=== PATIENT | female | born 1985 | race American Indian/Alaskan Native ===

== ENCOUNTER 2018-04-04 18:48 | Emergency (ER) | payer MEDICAID ==
[2018-04-04 19:51] VITALS: BP 128/67
[2018-04-04] MEDS ORDERED: NACL 0.9% 1000 ML 1,000 ML IV ONE (20:00)
[2018-04-04 20:32] LABS: Basophils # (Auto) 0.1 K/mm3 (0.0-0.1); Basophils % (Auto) 0.7 % (0.0-1.8); Eosinophils % (Auto) 0.3 % (0.0-4.3); Hematocrit 36.7 % (30.3-42.9); Hemoglobin 12.5 gm/dl (10.1-14.3); Lymphocytes # (Auto) 2.1 K/mm3 (1.2-5.4); Lymphocytes % (Auto) 22.2 % (13.4-35.0); Mean Corpuscular HGB Conc 34 % (30-34); Mean Corpuscular Hemoglobin 30 pg (28-32); Mean Corpuscular Volume 88 fl (79-97); Monocytes # (Auto) 0.6 K/mm3 (0.0-0.8); Monocytes % (Auto) 6.3 % (0.0-7.3); Platelet Count 414 K/mm3 (140-440); Red Blood Count 4.15 M/mm3 (3.65-5.03); Red Cell Distribution Width 14.4 % (13.2-15.2)
[2018-04-04 20:53] LABS: Alanine Aminotransferase 33 units/L (7-56); Albumin 4.3 g/dL (3.9-5); BUN/Creatinine Ratio 10; Blood Urea Nitrogen 5 mg/dL (7-17); Calcium 9.7 mg/dL (8.4-10.2); Hemolysis Index 1
[2018-04-04 20:58] LABS: Bilirubin,Urine NEG (Negative); Blood,Urine NEG (Negative); Color,Urine Yellow (Yellow); Mucus,Urine 3+ /HPF; Protein,Urine <15 mg/dL mg/dL (Negative)
--- NOTE | 2018-04-05 03:44 | Ultrasound Report ---
FINAL REPORT EXAM: US OB < = 14 WEEKS FETUS HISTORY: 8 weeks gestational/ Abdomen Pain COMPARISON: None available. TECHNIQUE: Several real-time grayscale and color Doppler images were obtained. Transabdominal and transvaginal exam. FINDINGS: The uterus measures 10.8 x 5.9 x 8.4 centimeters. There is a single live IUP. Estimated gestational age 9 weeks 5 days. Estimated delivery date November 03, 2018. heart rate 168 beats per minute. Yolk sac is present. Cervix is closed. Right ovary measures 3.1 x 2.7 x 2.5 centimeters. Left ovary measures 2.5 x 1.5 x 2.4 centimeters. Within the right ovary, there is a 1.8 x 1.3 x 1.5 centimeter cystic structure which may reflect corpus luteum. There is gross vascular flow to the ovaries. No adnexal masses or free fluid. IMPRESSION: Single live IUP. Estimated gestational age 9 weeks 5 days. Estimated delivery date November 03, 2018. 1.8 centimeter right ovarian cystic structure which may reflect corpus luteum. No adnexal masses are demonstrated.
== END 2018-04-05 07:31 | disposition left against medical advice (07) ==
LOC: ED 18:48
DX: R10.9 Unspecified abdominal pain (principal); Z53.21 Procedure and treatment not carried out due to patient leaving prior to being seen by health care provider
CPT/HCPCS: 36415; 76801; 76817; 80053; 81001; 84702; 85025

== ENCOUNTER 2018-10-16 18:59 | Inpatient (IN) | payer MEDICAID ==
--- NOTE | 2018-10-16 19:11 | History and Physical Report ---
History of Present Illness Date of examination: 10/16/18 Date of admission: 10/16/18 18:59 Chief complaint: Induction of labor History of present illness: Pt is a 33yo BF EDC 11/08/18; EGA 36 5/7 weeks presents from [facility] for induction of labor due to elevated BP's 161/81 and 159/70, small for gestational age and history of PTD. She received care at [facility] since 9 weeks and co-managed with [facility]. records are available and GBS is Negative. Past History Past Medical History: other (Morbid obesity) Past Surgical History: no surgical history Family/Genetic History: hypertension Social history: no significant social history, single - Obstetrical History Expected Date of Delivery: 11/08/18 Actual Gestation: 36 Week(s) 6 Day(s) : 4 Medications and Allergies Allergies Allergy/AdvReac Type Severity Reaction Status Date / Time amoxicillin [Amoxicillin] Allergy Rash Verified 07/12/15 12:50 Latex, Natural Rubber Allergy Itching Verified 07/12/15 12:50 povidone-iodine Allergy Itching Verified 07/12/15 12:50 [From Betadine] soap [From Betadine] Allergy Itching Verified 07/12/15 12:50 Home Medications Medication Instructions Recorded Confirmed Last Taken Type Ibuprofen [Motrin 600 MG tab] 600 mg PO Q8H PRN #30 tablet 07/12/15 Unknown Rx Promethazine Dm (Nf) [Phenergan Dm 5 ml PO Q6H PRN 7 Days 07/12/15 Unknown Rx 6.25/15 mg 5 ml] traMADol [Ultram 50 MG tab] 50 mg PO Q4HR PRN #20 tablet 07/12/15 Unknown Rx Review of Systems All systems: negative - Physical Exam Breasts: Positive: deferred Cardiovascular: Regular rate Lungs: Positive: Clear to auscultation Abdomen: Positive: normal appearance Genitourinary (Female): Positive: normal external genitalia Uterus: Positive: enlarged Extremities: Positive: normal - Obstetrical FHR: category 1 Uterine Contraction Monitor Mode: External Results Result Diagrams: 10/16/18 19:40 All other labs normal. Ultrasound: report reviewed Assessment and Plan - Patient Problems (1) 36 weeks gestation of Onset Date: 10/16/18 Current Visit: Yes Status: Acute Plan to address problem: A: IUP @ 36 5/7 weeks Suspected Preeclampsia Morbid Obesity P: Admit to L&D for cervidil/pitiocin induction of labor (2) Preeclampsia Onset Date: 10/16/18 Current Visit: Yes Status: Acute Qualifiers: Trimester: third trimester Qualified Code(s): O14.93 - Unspecified pre- eclampsia, third trimester
[2018-10-16] MEDS ORDERED: STADOL IV PRN (19:26)
[2018-10-16] MEDS ORDERED: SUBLIMAZE IV PRN (19:26)
[2018-10-16] MEDS ORDERED: PHENERGAN PO PRN (19:26)
[2018-10-16] MEDS ORDERED: BRETHINE SUB-Q PRN (19:26)
[2018-10-16] MEDS ORDERED: XYLOCAINE 2% INFILTRATI ONE (19:26)
[2018-10-16] MEDS ORDERED: BRETHINE IVP PRN (19:26)
[2018-10-16] MEDS ORDERED: MINERAL OIL PO PRN (19:26)
[2018-10-16] MEDS ORDERED: ZOFRAN IV PRN (19:26)
[2018-10-16 20:00] LABS: Hematocrit 30.8 % (30.3-42.9); Mean Corpuscular HGB Conc 33 % (30-34); Mean Corpuscular Volume 85 fl (79-97); Platelet Count 340 K/mm3 (140-440); Red Blood Count 3.64 M/mm3 (3.65-5.03); Red Cell Distribution Width 14.7 % (13.2-15.2)
[2018-10-16] MEDS ORDERED: PITOCin/NS 20 UNIT/1000ML DRIP 20 UNITS/1,000 ML BAG IV SCH (20:00)
[2018-10-16] MEDS ORDERED: CERVIDIL VG ONE (20:00)
[2018-10-16] MEDS ORDERED: PITOCin/NS 30 UNIT/500ML 30 UNITS/500 ML BAG IV SCH ×2 (20:00)
[2018-10-16] MEDS: LACTATED RINGERS 1,000 ML IV SCH (21:38)
[2018-10-16] MEDS: TYLENOL PO PRN (23:34)
--- NOTE | 2018-10-17 12:26 | Progress Note ---
Assessment and Plan - Patient Problems (1) 36 weeks gestation of Onset Date: 10/16/18 Current Visit: Yes Status: Acute Plan to address problem: A: IUP @ 36 6/7 weeks Suspected Preeclampsia Morbid Obesity P: Continue with pitiocin induction of labor (2) Preeclampsia Onset Date: 10/16/18 Current Visit: Yes Status: Acute Qualifiers: Trimester: third trimester Qualified Code(s): O14.93 - Unspecified pre- eclampsia, third trimester Subjective - Subjective Date of service: 10/17/18 Principal diagnosis: IUP @ 36 6/7 weeks; Preeclampsia Interval history: Pt is a 33yo BF EDC 11/08/18; EGA 36 6/7 weeks presented from [facility] for induction of labor due to elevated BP's 161/81 and 159/70, small for gestational age and history of PTD. She received cervidil last night and will start pitocin now. Patient reports: movement normal, contractions, no new complaints, no loss of fluid, no vaginal bleeding Objective - Vital Signs Vital Signs: Vital Signs - 12hr 10/17/18 10/17/18 10/17/18 00:30 00:35 00:40 Temperature Pulse Rate 67 61 58 L Blood Pressure O2 Sat by Pulse 100 98 99 Oximetry 10/17/18 10/17/18 10/17/18 00:45 00:50 00:55 Temperature Pulse Rate 61 61 61 Blood Pressure O2 Sat by Pulse 98 98 99 Oximetry 10/17/18 10/17/18 10/17/18 01:00 01:05 01:08 Temperature Pulse Rate 64 64 72 Blood Pressure O2 Sat by Pulse 99 99 88 Oximetry 10/17/18 10/17/18 10/17/18 01:10 01:24 01:29 Temperature Pulse Rate 63 58 L 64 Blood Pressure O2 Sat by Pulse 98 99 99 Oximetry 10/17/18 10/17/18 10/17/18 01:37 01:42 01:47 Temperature Pulse Rate 69 63 61 Blood Pressure O2 Sat by Pulse 98 98 98 Oximetry 10/17/18 10/17/18 10/17/18 01:52 01:57 02:02 Temperature Pulse Rate 62 59 L 60 Blood Pressure O2 Sat by Pulse 97 98 98 Oximetry 10/17/18 10/17/18 10/17/18 02:07 02:12 02:17 Temperature Pulse Rate 65 61 64 Blood Pressure O2 Sat by Pulse 97 97 97 Oximetry 10/17/18 10/17/18 10/17/18 02:22 02:24 02:27 Temperature Pulse Rate 67 61 62 Blood Pressure 141/69 O2 Sat by Pulse 97 98 Oximetry 10/17/18 10/17/18 10/17/18 02:30 02:32 02:37 Temperature Pulse Rate 63 60 64 Blood Pressure 127/63 O2 Sat by Pulse 99 98 Oximetry 10/17/18 10/17/18 10/17/18 02:42 02:47 02:52 Temperature Pulse Rate 66 67 66 Blood Pressure O2 Sat by Pulse 97 97 98 Oximetry 10/17/18 10/17/18 10/17/18 02:57 03:02 03:07 Temperature Pulse Rate 64 64 63 Blood Pressure O2 Sat by Pulse 98 98 99 Oximetry 10/17/18 10/17/18 10/17/18 03:12 03:17 03:22 Temperature Pulse Rate 58 L 55 L 58 L Blood Pressure O2 Sat by Pulse 99 98 98 Oximetry 10/17/18 10/17/18 10/17/18 03:27 03:30 03:32 Temperature Pulse Rate 62 56 L 63 Blood Pressure 131/64 O2 Sat by Pulse 98 98 Oximetry 10/17/18 10/17/18 10/17/18 03:37 03:42 03:47 Temperature Pulse Rate 61 63 59 L Blood Pressure O2 Sat by Pulse 97 98 98 Oximetry 10/17/18 10/17/18 10/17/18 03:52 03:57 04:02 Temperature Pulse Rate 65 59 L 56 L Blood Pressure O2 Sat by Pulse 98 98 99 Oximetry 10/17/18 10/17/18 10/17/18 04:05 04:07 04:12 Temperature Pulse Rate 53 L 63 69 Blood Pressure O2 Sat by Pulse 93 97 98 Oximetry 10/17/18 10/17/18 10/17/18 04:15 04:17 04:22 Temperature Pulse Rate 66 61 77 Blood Pressure O2 Sat by Pulse 94 98 98 Oximetry 10/17/18 10/17/18 10/17/18 04:59 05:03 05:04 Temperature Pulse Rate 53 L 56 L 57 L Blood Pressure 130/84 O2 Sat by Pulse 100 97 Oximetry 10/17/18 10/17/18 10/17/18 05:09 05:14 05:19 Temperature Pulse Rate 54 L 55 L 51 L Blood Pressure O2 Sat by Pulse 97 97 97 Oximetry 10/17/18 10/17/18 10/17/18 05:24 05:29 05:31 Temperature Pulse Rate 50 L 57 L 54 L Blood Pressure 116/66 O2 Sat by Pulse 99 98 Oximetry 10/17/18 10/17/18 10/17/18 05:34 05:39 05:44 Temperature Pulse Rate 55 L 55 L 59 L Blood Pressure O2 Sat by Pulse 98 98 98 Oximetry 10/17/18 10/17/18 10/17/18 05:49 05:54 05:59 Temperature Pulse Rate 56 L 59 L 55 L Blood Pressure O2 Sat by Pulse 97 97 98 Oximetry 10/17/18 10/17/18 10/17/18 06:04 06:09 06:14 Temperature Pulse Rate 58 L 65 61 Blood Pressure O2 Sat by Pulse 97 97 99 Oximetry 10/17/18 10/17/18 10/17/18 06:19 06:24 06:29 Temperature Pulse Rate 57 L 57 L 59 L Blood Pressure O2 Sat by Pulse 99 99 100 Oximetry 10/17/18 10/17/18 10/17/18 06:30 06:46 06:51 Temperature Pulse Rate 54 L 61 66 Blood Pressure 109/75 O2 Sat by Pulse 100 100 Oximetry 10/17/18 10/17/18 10/17/18 06:56 07:01 07:06 Temperature Pulse Rate 52 L 52 L 54 L Blood Pressure O2 Sat by Pulse 100 100 100 Oximetry 10/17/18 10/17/18 10/17/18 07:11 07:16 07:21 Temperature Pulse Rate 55 L 57 L 62 Blood Pressure O2 Sat by Pulse 100 99 99 Oximetry 10/17/18 10/17/18 10/17/18 07:30 07:35 07:36 Temperature 98.0 F Pulse Rate 62 58 L Blood Pressure 137/85 O2 Sat by Pulse 100 100 Oximetry 10/17/18 10/17/18 10/17/18 07:40 07:45 07:50 Temperature Pulse Rate 54 L 57 L 57 L Blood Pressure O2 Sat by Pulse 99 100 99 Oximetry 10/17/18 10/17/18 10/17/18 07:55 08:00 08:05 Temperature Pulse Rate 59 L 60 56 L Blood Pressure O2 Sat by Pulse 98 98 98 Oximetry 10/17/18 10/17/18 10/17/18 08:10 08:15 08:20 Temperature Pulse Rate 57 L 55 L 58 L Blood Pressure O2 Sat by Pulse 97 98 98 Oximetry 10/17/18 10/17/18 10/17/18 08:25 08:30 08:35 Temperature Pulse Rate 73 58 L 59 L Blood Pressure 132/63 O2 Sat by Pulse 99 94 98 Oximetry 10/17/18 10/17/18 10/17/18 08:40 08:45 08:50 Temperature Pulse Rate 59 L 57 L 57 L Blood Pressure O2 Sat by Pulse 98 98 99 Oximetry 10/17/18 10/17/18 10/17/18 08:55 09:00 09:05 Temperature Pulse Rate 52 L 63 55 L Blood Pressure O2 Sat by Pulse 99 99 99 Oximetry 10/17/18 10/17/18 10/17/18 09:10 09:15 09:20 Temperature Pulse Rate 54 L 48 L 58 L Blood Pressure O2 Sat by Pulse 100 100 100 Oximetry 10/17/18 10/17/18 09:25 11:31 Temperature Pulse Rate 61 58 L Blood Pressure 130/74 O2 Sat by Pulse 99 Oximetry - Exam Abdomen: Present: normal appearance, soft Uterus: Present: normal FHR: category 1 Uterine Contraction Monitor Mode: External Cervical Dilatation: 3 (per nurse) Cervical Effacement Percentage: 50 (per nurse) station: -3 Uterine Contraction Pattern: Regular Uterine Tone Measurement Phase: Contraction Uterine Contraction Intensity: Mild - Labs Labs: Abnormal Labs 10/16/18 19:40 RBC 3.64 L Hgb 10.0 L Laboratory Results - last 24 hr 10/16/18 10/16/18 10/16/18 19:40 19:40 19:40 WBC 7.4 RBC 3.64 L Hgb 10.0 L Hct 30.8 MCV 85 MCH 28 MCHC 33 RDW 14.7 Plt Count 340 RPR Nonreactive Blood Type B POSITIVE Antibody Screen Negative
[2018-10-17] MEDS ORDERED: MARCAINE 0.25% INFILTRATI ONE (17:34)
[2018-10-17] MEDS ORDERED: NARCAN 2 MG/2 ML IV PRN (17:43)
--- NOTE | 2018-10-17 17:43 | Anesthesia Day of Surgery ---
Anesthesia Day of Surgery - Day of Surgery Patient Examined: Yes Patient H&P Reviewed: Yes Patient is NPO: Yes Beta Blockers: No Cardiac Clearance: No Pulmonary Clearance: No Janes's Test: N/A
[2018-10-17] MEDS ORDERED: fentaNYL-BUPIV 2 MCG/ML-0.125% 200 MCG/100 ML BAG EPIDURAL ONE (17:58)
[2018-10-17] MEDS ORDERED: fentaNYL-BUPIV 2 MCG/ML-0.125% 200 MCG/100 ML BAG EPIDURAL SCH (18:00)
--- NOTE | 2018-10-17 18:44 | Anesthesia Consultation ---
Anesthesia Consult and Med Hx Date of service: 10/17/18 - Airway Anesthetic Teeth Evaluation: Good ROM Head & Neck: Adequate Mental/Hyoid Distance: Adequate Mallampati Class: Class III Intubation Access Assessment: Probably Good - Pulmonary Exam CTA: Yes - Cardiac Exam Cardiac Exam: RRR - Pre-Operative Health Status ASA Pre-Surgery Classification: ASA3 Proposed Anesthetic Plan: Epidural - Pulmonary Hx Smoking: No Hx Asthma: No Hx Respiratory Symptoms: No SOB: No COPD: No Hx Pneumonia: No Hx Sleep Apnea: No - Cardiovascular System Hx Hypertension: Yes Hx Coronary Artery Disease: No Hx Heart Attack/AMI: No Hx Angina: No Hx Percutaneous Transluminal Coronary Angioplasty (PTCA): No Hx Cardia Arrhythmia: No Hx Pacemaker: No Hx Internal Defibrillator: No Hx Valvular Heart Disease: No Hx Heart Murmur: No Hx Peripheral Vascular Disease: No - Central Nervous System Hx Neuromuscular Disorder: No Hx Seizures: No CVA: No Hx Back Pain: Yes () Hx Psychiatric Problems: No - Gastrointestinal Hx Ulcer: No Hx Gastroesophageal Reflux Disease: Yes (associated with foods) - Endocrine Hx Renal Disease: No Hx End Stage Renal Disease: No Hx Cirrhosis: No Hx Liver Disease: No Hx Insulin Dependent Diabetes: No Hx Non-Insulin Dependent Diabetes: No Hx Thyroid Disease: No Hx Hypothyroidism: No Hx Hyperthyroidism: No - Hematic Hx Anemia: No Hx Sickle Cell Disease: No - Other Systems Hx Alcohol Use: No Hx Substance Use: No Hx Cancer: No Hx Obesity: Yes (denies YVROSE)
[2018-10-17] MEDS: TYLENOL PO PRN (20:14)
[2018-10-17] MEDS: LACTATED RINGERS 1,000 ML IV SCH (20:16)
--- NOTE | 2018-10-17 22:17 | Procedure Note ---
OB Delivery Note - Delivery Date of Delivery: 10/17/18 Surgeon: JADEN WYMAN Estimated blood loss: 100cc - Vaginal Delivery presentation: vertex Delivery position: OA Intrapartum events: labor-<37 weeks, preeclampsia Delivery induction: cervidil Delivery augmentation: rupture of membranes, pitocin Delivery monitor: external FHT, external uterine, internal uterine Route of delivery: Delivery placenta: spontaneous Delivery cord: 3 umbilical vessels Episiotomy: none Delivery laceration: none Anesthesia: epidural Delivery comments: Infant delivered OA and placed on Mom's chest for [id number] bonding and delayed cord clamping, cut by grandma - A at 1 minute: 8 at 5 minutes: 9 Gender: Male (2390gms)
[2018-10-17] MEDS ORDERED: TUCKS PAD TP PRN (22:19)
[2018-10-17] MEDS ORDERED: LANSINOH TP PRN (22:19)
[2018-10-17] MEDS ORDERED: BENADRYL PO PRN (22:19)
[2018-10-17] MEDS ORDERED: TYLENOL PO PRN (22:19)
[2018-10-17] MEDS ORDERED: PHENERGAN PO PRN (22:19)
[2018-10-17] MEDS ORDERED: MILK OF MAGNESIA PO PRN (22:19)
[2018-10-17] MEDS ORDERED: DULCOLAX PR PRN (22:19)
[2018-10-17] MEDS ORDERED: ZOFRAN IV PRN (22:19)
[2018-10-17] MEDS ORDERED: PHENERGAN PR PRN (22:19)
[2018-10-17] MEDS: NORCO 5/325 PO PRN (22:44)
[2018-10-17] MEDS ORDERED: NORMODYNE PO SCH (23:00)
[2018-10-17] MEDS ORDERED: SODIUM CHLORIDE FLUSH SYRINGE 10 ML IV PRN (23:00)
[2018-10-17] MEDS ORDERED: PITOCin/NS 20 UNIT/1000ML DRIP 20 UNITS/1,000 ML BAG IV SCH (23:00)
[2018-10-18] MEDS: IBUPROFEN PO SCH ×4 (00:08→22:44)
[2018-10-18] MEDS: SENOKOT S PO SCH ×3 (00:09→22:44)
--- NOTE | 2018-10-18 01:08 | Post Anesthesia Evaluation ---
- Post Anesthesia Evaluation Patient Participated: Yes Airway Patent: Yes Stable Respiratory Function: Yes Nausea/Vomiting: No Temp > 96.8F: No Pain Manageable: Yes Adequeate Hydration: Yes Anesthesia Complications: No Block Receding Appropriately: Yes Patient on Ventilator: No
[2018-10-18] MEDS: NORCO 5/325 PO PRN ×2 (05:06→22:45)
--- NOTE | 2018-10-18 09:47 | Progress Note ---
Assessment and Plan - Patient Problems (1) 36 weeks gestation of Onset Date: 10/16/18 Current Visit: Yes Status: Resolved (2) Preeclampsia Onset Date: 10/16/18 Current Visit: Yes Status: Resolved Qualifiers: Trimester: third trimester Qualified Code(s): O14.93 - Unspecified pre-eclampsia, third trimester (3) (normal spontaneous vaginal delivery) Onset Date: 10/18/18 Current Visit: Yes Status: Resolved Plan to address problem: A: S/P - PPD #1 Doing well Preeclampsia - improved on Labetolol Asymptomatic anemia - stable P: Anticipate discharge tomorrow. Subjective - Subjective Date of service: 10/18/18 Principal diagnosis: s/p - PPD #1 Interval history: Pt is feeling well without complaints. Bleeding improved. Patient reports: appetite normal, voiding normally, pain well controlled, flatus, ambulating normally, no dizzy ambulation, no nauseated Burns: doing well, nursing well, bottle feeding Objective - Vital Signs Latest vital signs: Vital Signs Temp Pulse Resp BP BP Pulse Ox 10/18/18 07:28 97.7 F 60 20 133/67 98 10/18/18 04:35 98.1 F 55 L 20 136/62 98 10/17/18 23:46 98.2 F 57 L 18 147/76 100 10/17/18 22:44 55 L 115/65 10/17/18 22:43 152/83 10/17/18 22:33 61 99 10/17/18 22:28 65 98 10/17/18 22:23 68 98 10/17/18 22:21 65 152/83 10/17/18 22:19 85 94 10/17/18 22:18 61 100 10/17/18 22:13 62 100 10/17/18 22:11 66 62 L 10/17/18 22:08 64 100 10/17/18 22:03 65 93 10/17/18 22:02 67 99 10/17/18 21:57 58 L 100 10/17/18 21:52 55 L 100 10/17/18 21:50 57 L 157/77 10/17/18 21:47 58 L 100 10/17/18 21:42 55 L 100 10/17/18 21:40 63 161/75 10/17/18 21:37 62 182/83 100 10/17/18 21:32 55 L 100 10/17/18 21:27 56 L 100 10/17/18 21:22 53 L 100 10/17/18 21:20 54 L 158/93 10/17/18 21:17 53 L 100 10/17/18 21:12 54 L 100 10/17/18 21:07 56 L 155/89 98 10/17/18 21:02 71 100 10/17/18 20:57 61 100 10/17/18 20:52 55 L 100 10/17/18 20:51 55 L 148/79 10/17/18 20:47 58 L 100 10/17/18 20:42 61 100 10/17/18 20:37 57 L 100 10/17/18 20:36 55 L 136/83 10/17/18 20:32 59 L 100 10/17/18 20:27 56 L 100 10/17/18 20:22 61 100 10/17/18 20:21 58 L 136/72 10/17/18 20:17 73 99 10/17/18 20:12 59 L 100 10/17/18 20:07 62 140/76 99 10/17/18 20:04 61 149/78 10/17/18 20:02 69 100 10/17/18 19:57 60 100 10/17/18 19:52 59 L 100 10/17/18 19:50 60 129/83 10/17/18 19:47 66 100 10/17/18 19:42 60 100 10/17/18 19:37 59 L 100 10/17/18 19:35 63 132/82 10/17/18 19:32 61 100 10/17/18 19:27 62 100 10/17/18 19:22 59 L 136/83 100 10/17/18 19:17 62 100 10/17/18 19:12 74 99 10/17/18 19:09 98.7 F 62 18 130/82 10/17/18 19:07 63 100 10/17/18 19:06 57 L 130/80 10/17/18 19:02 57 L 99 10/17/18 18:57 53 L 100 10/17/18 18:52 57 L 100 10/17/18 18:51 98.4 F 10/17/18 18:50 56 L 138/86 10/17/18 18:48 54 L 140/83 10/17/18 18:47 57 L 100 10/17/18 18:46 53 L 138/80 10/17/18 18:44 60 131/87 10/17/18 18:42 56 L 130/83 100 10/17/18 18:40 57 L 132/86 10/17/18 18:38 60 132/85 10/17/18 18:37 59 L 100 10/17/18 18:36 58 L 122/75 10/17/18 18:34 60 125/76 10/17/18 18:32 60 142/73 100 10/17/18 18:30 62 124/77 10/17/18 18:28 62 126/76 10/17/18 18:27 64 100 10/17/18 18:24 64 149/85 10/17/18 18:23 78 147/81 93 10/17/18 18:22 67 97 10/17/18 18:20 65 148/79 10/17/18 18:18 65 148/74 10/17/18 18:17 63 100 10/17/18 18:16 76 143/71 10/17/18 18:14 67 158/88 10/17/18 18:12 68 156/90 10/17/18 18:11 59 L 169/107 10/17/18 18:10 58 L 178/97 10/17/18 18:09 57 L 100 10/17/18 18:04 57 L 100 10/17/18 17:33 86 138/70 10/17/18 17:18 56 L 144/78 10/17/18 17:04 55 L 161/89 10/17/18 16:49 55 L 130/84 10/17/18 16:33 52 L 137/65 10/17/18 16:18 55 L 144/77 10/17/18 16:05 54 L 161/72 10/17/18 15:50 52 L 158/74 10/17/18 15:20 65 166/94 10/17/18 15:04 57 L 133/72 10/17/18 14:48 63 127/74 10/17/18 14:33 63 131/78 10/17/18 14:18 70 126/72 10/17/18 14:04 62 131/77 10/17/18 13:49 58 L 145/72 10/17/18 13:33 57 L 142/66 10/17/18 13:18 54 L 160/75 10/17/18 12:31 61 144/78 10/17/18 11:31 58 L 130/74 Intake and Output 10/17/18 10/18/18 10/18/18 22:59 06:59 14:59 Intake Total 126.067 360 Output Total 300 Balance 126.067 60 Intake: IV 126.067 PITOCin/NS 30 UNIT/500ML 126.067 30 units In 500 ml @ 1 MILLIUNITS/MIN 1 mls/hr IV TITR NAOMY Rx#:[id number] Intake, Free Water 360 Output: Urine 300 Void 300 Other: Total, Output Amount 100 Estimated Blood Loss 100 - Exam Breasts: Present: deferred Abdomen: Present: normal appearance, soft Uterus: Present: normal, firm, fundal height below umbilicus Extremities: Present: normal - Labs Labs: Laboratory Tests 10/16/18 10/16/18 10/16/18 19:40 19:40 19:40 WBC 7.4 RBC 3.64 L Hgb 10.0 L Hct 30.8 MCV 85 MCH 28 MCHC 33 RDW 14.7 Plt Count 340 RPR Nonreactive Blood Type B POSITIVE Antibody Screen Negative 10/18/18 10:59 WBC RBC Hgb 9.3 L Hct 28.0 L MCV MCH MCHC RDW Plt Count RPR Blood Type Antibody Screen
[2018-10-18] MEDS: NORMODYNE PO SCH ×2 (10:09→22:46)
[2018-10-18] MEDS: PRENATAL VITAMIN PO SCH (10:09)
[2018-10-18] MEDS: FEOSOL PO SCH ×2 (10:10→22:43)
[2018-10-18 11:40] LABS: Hemoglobin 9.3 gm/dl (10.1-14.3)
[2018-10-18] MEDS ORDERED: M-M-R II VACCINE SUB-Q ONE (22:19)
[2018-10-19] MEDS: IBUPROFEN PO SCH ×4 (04:26→18:41)
[2018-10-19] MEDS: NORCO 5/325 PO PRN ×2 (04:29→11:49)
[2018-10-19] MEDS ORDERED: BOOSTRIX IM ONE (06:00)
[2018-10-19] MEDS: FEOSOL PO SCH ×2 (09:27→22:09)
[2018-10-19] MEDS: PRENATAL VITAMIN PO SCH (09:27)
--- NOTE | 2018-10-19 09:49 | Progress Note ---
Assessment and Plan - Patient Problems (1) 36 weeks gestation of Onset Date: 10/16/18 Current Visit: Yes Status: Resolved (2) Preeclampsia Onset Date: 10/16/18 Current Visit: Yes Status: Resolved Qualifiers: Trimester: third trimester Qualified Code(s): O14.93 - Unspecified pre-eclampsia, third trimester (3) (normal spontaneous vaginal delivery) Onset Date: 10/18/18 Current Visit: Yes Status: Resolved Plan to address problem: A: S/P - PPD #2 Doing well Preeclampsia - improved on Labetolol Asymptomatic anemia - stable P: Will increase Labetolol to 200mg BID. Subjective - Subjective Date of service: 10/19/18 Principal diagnosis: s/p - PPD #2 Interval history: Pt is feeling well without complaints. Pt complains of a mild headache. Patient reports: appetite normal, voiding normally, pain well controlled, flatus, no dizzy ambulation, no nauseated Coleman: doing well, nursing well Objective - Vital Signs Latest vital signs: Vital Signs Temp Pulse Resp BP BP Pulse Ox 10/19/18 09:27 94 H 159/91 10/19/18 08:15 97.5 F L 49 L 20 159/91 10/19/18 06:40 49 L 20 139/70 10/19/18 04:29 16 10/19/18 04:26 16 10/19/18 02:14 97.8 F 60 20 145/85 98 10/18/18 22:46 68 134/72 10/18/18 22:45 16 10/18/18 22:44 16 10/18/18 22:39 97.6 F 69 16 134/72 99 10/18/18 12:06 98.2 F 64 20 127/70 97 10/18/18 10:09 127/63 Intake and Output 10/18/18 10/19/18 10/19/18 22:59 06:59 14:59 Intake Total 360 360 120 Balance 360 360 120 Intake: Oral 360 360 120 Other: Total, Intake Amount 240 120 120 # Voids Void 1 1 1 - Exam Cardiovascular: Present: Regular rate Lungs: Present: Clear to auscultation Abdomen: Present: normal appearance, soft Uterus: Present: normal, firm, fundal height below umbilicus Extremities: Present: normal - Labs Labs: Abnormal lab results 10/18/18 Range/Units 10:59 Hgb 9.3 L (10.1-14.3) gm/dl Hct 28.0 L (30.3-42.9) %
[2018-10-19] MEDS ORDERED: NORMODYNE PO SCH (10:00)
[2018-10-19] MEDS ORDERED: NORMODYNE PO NR (10:05)
[2018-10-19] MEDS: SENOKOT S PO SCH ×3 (12:00→22:09)
[2018-10-19] MEDS: NORMODYNE PO SCH (22:10)
[2018-10-20] MEDS: IBUPROFEN PO SCH (02:28)
--- NOTE | 2018-10-20 10:28 | Discharge Summary ---
Providers - Providers Date of Admission: 10/16/18 18:59 Date of discharge: 10/20/18 Attending physician: JADEN WYMAN Primary care physician: JADEN WYMAN Hospitalization Reason for admission: induction of labor, IUP at term, other (Preeclampsia) Delivery: Episiotomy: none Laceration: none complications: none Discharge diagnosis: IUP at term delivered [place] baby: male Hospital course: Pt is a 33yo BF EDC 11/08/18; EGA 36 6/7 weeks presented from [facility] for induction of labor due to elevated BP's 161/81 and 159/70, small for gestational age and history of PTD. She received cervidil followed by pitocin and subsequently delivered a viable male . By PPD #2 her BP's were controlled on Labetolol 200mg BID and she was therefore discharged to home on PPD #3 in stable condition. She will follow up in the office in 1 week for BP check. Condition at discharge: Good Disposition: DC-01 TO HOME OR SELFCARE - Discharge Diagnoses (1) 36 weeks gestation of Status: Resolved (2) Preeclampsia Status: Resolved Qualifiers: Trimester: third trimester Qualified Code(s): O14.93 - Unspecified pre- eclampsia, third trimester (3) (normal spontaneous vaginal delivery) Status: Resolved Plan - Discharge Medications Prescriptions: Ferrous Sulfate [Feosol 325 MG tab] 325 mg PO BID #60 tablet Ibuprofen [Motrin 600 MG tab] 600 mg PO Q6HR #30 tablet Labetalol [Normodyne TAB] 200 mg PO BID #30 tablet Vit-Fe Fumar-FA [ Vitamin] 1 each PO QDAY #30 tablet - Provider Discharge Summary Activity: routine, no sex for 6 weeks, no heavy lifting 4 weeks, no strenuous exercise Diet: routine Instructions: routine Additional instructions: [] Smoking cessation referral if applicable(refer to patient education folder for contact #) [] Refer to [facility] Booklet Call your doctor immediately for: * Fever > 100.5 * Heavy vaginal bleeding ( >1 pad per hour) * Severe persistent headache * Shortness of breath * Reddened, hot, painful area to leg or breast * Drainage or odor from incision. * Keep incision clean and dry at all times and follow doctor's instructions regarding bathing/showering - Follow up plan Follow up: JADEN WYMAN MD [Primary Care Provider] - 7 Days SWATHI WILKERSON CNM [Advanced Practice Nurse] - 7 Days
--- NOTE | 2018-10-20 10:28 | Progress Note ---
Assessment and Plan - Patient Problems (1) 36 weeks gestation of Onset Date: 10/16/18 Current Visit: Yes Status: Resolved (2) Preeclampsia Onset Date: 10/16/18 Current Visit: Yes Status: Resolved Qualifiers: Trimester: third trimester Qualified Code(s): O14.93 - Unspecified pre-eclampsia, third trimester (3) (normal spontaneous vaginal delivery) Onset Date: 10/18/18 Current Visit: Yes Status: Resolved Plan to address problem: A: S/P - PPD #3 Doing well Preeclampsia - improved on Labetolol Asymptomatic anemia - stable P: May go home today. Subjective - Subjective Date of service: 10/20/18 Principal diagnosis: s/p - PPD #3 Interval history: Pt is feeling well without complaints. Ready to go home. Patient reports: appetite normal, voiding normally, pain well controlled, flatus, ambulating normally, no dizzy ambulation, no nauseated [place]: doing well, nursing well, bottle feeding Objective - Vital Signs Latest vital signs: Vital Signs Temp Pulse Resp BP BP Pulse Ox 10/20/18 07:41 98.2 F 54 L 16 180/67 100 10/20/18 04:44 98.4 F 62 20 162/60 98 10/20/18 00:24 98.3 F 52 L 24 133/58 10/19/18 22:10 57 L 180/78 10/19/18 21:22 98.6 F 52 L 16 180/78 100 10/19/18 16:15 97.2 F L 51 L 20 147/56 10/19/18 11:55 97.4 F L 63 20 156/73 Intake and Output 10/19/18 10/20/18 10/20/18 22:59 06:59 14:59 Intake Total 240 360 Balance 240 360 Intake: Oral 240 Intake, Free Water 360 Other: Total, Intake Amount 240 Voiding Method Toilet # Voids Void 1 2 - Exam Breasts: Present: deferred Abdomen: Present: normal appearance, soft Uterus: Present: normal, firm, fundal height below umbilicus Extremities: Present: normal
[2018-10-20] MEDS: FEOSOL PO SCH (10:47)
[2018-10-20] MEDS: SENOKOT S PO SCH (10:47)
[2018-10-20] MEDS: PRENATAL VITAMIN PO SCH (10:47)
[2018-10-20] MEDS: NORMODYNE PO SCH (10:48)
[2018-10-20 12:32] VITALS: BP 167/76
[2018-10-20] MEDS ORDERED: M-M-R II VACCINE SUB-Q ONE (15:00)
== END 2018-10-20 14:30 | disposition home or self-care (01) | DRG 774 ==
LOC: LD 18:59 → OB 10-17 23:40
PROVIDERS: ADMIT Obstetrics & Gynecology; ATTEND Obstetrics & Gynecology
PROC: 10E0XZZ Delivery of Products of Conception, External Approach (ICD-10-PCS; principal; 2018-10-17)
PROC: 3E0R3BZ Introduction of Anesthetic Agent into Spinal Canal, Percutaneous Approach (ICD-10-PCS; 2018-10-17)
PROC: 00HU33Z Insertion of Infusion Device into Spinal Canal, Percutaneous Approach (ICD-10-PCS; 2018-10-17)
PROC: 3E0P7VZ Introduction of Hormone into Female Reproductive, Via Natural or Artificial Opening (ICD-10-PCS; 2018-10-17)
PROC: 3E0234Z Introduction of Serum, Toxoid and Vaccine into Muscle, Percutaneous Approach (ICD-10-PCS; 2018-10-20)
DX: O60.14X0 Preterm labor third trimester with preterm delivery third trimester, not applicable or unspecified (principal); O14.94 Unspecified pre-eclampsia, complicating childbirth; O99.214 Obesity complicating childbirth; E66.01 Morbid (severe) obesity due to excess calories; O99.02 Anemia complicating childbirth; D64.9 Anemia, unspecified; Z82.49 Family history of ischemic heart disease and other diseases of the circulatory system; Z88.8 Allergy status to other drugs, medicaments and biological substances; Z88.1 Allergy status to other antibiotic agents; Z3A.36 36 weeks gestation of pregnancy; Z37.0 Single live birth; Z23 Encounter for immunization; Z91.040 Latex allergy status
CPT/HCPCS: 36415; 85014; 85018; 85027; 86592; 86850; 86900; 86901; 88307; G0378; J2405; J2590; J7120

== ENCOUNTER 2020-12-07 13:56 | Outpatient (CLI) | payer MEDICAID ==
[2020-12-07] MEDS ORDERED: LACTATED RINGERS 1,000 ML IV SCH (14:15)
[2020-12-07] MEDS ORDERED: METOCLOPRAMIDE 10 MG/2 ML INJ IV ONE (15:04)
[2020-12-07] MEDS ORDERED: ONDANSETRON 4 MG/2 ML INJ IV ONE (15:06)
[2020-12-07] MEDS ORDERED: BICITRA ORAL LIQD 30ML PO ONE (15:07)
[2020-12-07 15:54] VITALS: BP 153/81
[2020-12-07 15:55] LABS: Bacteria,Urine 1+ /HPF (Negative); Bilirubin,Urine SM (Negative); Blood,Urine NEG (Negative); Color,Urine Amber (Yellow); Mucus,Urine 3+ /HPF
[2020-12-07 16:12] LABS: Ictotest,Urine Negative (Negative)
== END 2020-12-07 16:24 | disposition home or self-care (01) ==
LOC: TRG 13:56 → APU 13:58 → TRG 16:24
PROVIDERS: ATTEND Obstetrics & Gynecology
DX: O21.2 Late vomiting of pregnancy (principal); O10.913 Unspecified pre-existing hypertension complicating pregnancy, third trimester; Z3A.31 31 weeks gestation of pregnancy; Z87.891 Personal history of nicotine dependence
CPT/HCPCS: 59025; 81001; 96361; 96374; 96375; J2405; J2765; J7120; 96360

== ENCOUNTER 2020-12-23 13:31 | Inpatient (IN) | payer MEDICAID ==
[2020-12-23] MEDS: LACTATED RINGERS 1,000 ML IV SCH (15:43)
[2020-12-23 16:14] LABS: Bacteria,Urine 1+ /HPF (Negative); Bilirubin,Urine NEG (Negative); Blood,Urine NEG (Negative); Color,Urine Yellow (Yellow); Mucus,Urine FEW /HPF
[2020-12-23 16:34] LABS: Hematocrit 30.6 % (30.3-42.9); Hemoglobin 10.1 gm/dl (10.1-14.3); Mean Corpuscular HGB Conc 33 % (30-34); Mean Corpuscular Volume 83 fl (79-97); Platelet Count 293 K/mm3 (140-440); Red Blood Count 3.67 M/mm3 (3.65-5.03); Red Cell Distribution Width 16.2 % (13.2-15.2)
[2020-12-23 17:06] LABS: Alanine Aminotransferase 101 units/L (7-56)
[2020-12-23] MEDS ORDERED: hydrALAZINE 20 MG/1 ML INJ IV NR (17:14)
[2020-12-23] MEDS ORDERED: hydrALAZINE 20 MG/1 ML INJ ONE (17:14)
[2020-12-23 17:47] LABS: Creatinine,Urine 42.5 mg/dL (0.1-20.0); Protein/Creatinine Ratio,Urine 0.31
[2020-12-23] MEDS ORDERED: ONDANSETRON 4 MG/2 ML INJ IV PRN (18:14)
[2020-12-23] MEDS ORDERED: DOCUSATE SODIUM 100 MG CAP PO PRN (18:14)
[2020-12-23] MEDS ORDERED: MAGNESIUM SULFATE 4 GM/100 ML BAG IV ONE (18:19)
[2020-12-23] MEDS ORDERED: BETAMET ACET/BETAMET NA PH 6 MG/ML INJ 5 ML MDV IM SCH ×2 (18:20→19:00)
--- NOTE | 2020-12-23 18:27 | History and Physical Report ---
History of Present Illness Date of examination: 12/23/20 History of present illness: 35 yo at 34 weeks and 1 day presents today with bothersome on and off CRUZ. No blurred vision. No CP/SOB. BPs in the hospital have been labile but several have been in the severe range. Pt has had preeclamspia in all of her p regnancies. PT not on any BP meds as her BPs, per pt, have been stable in the until now. No available. PT denies having had steroids during her . Past History Past Medical History: other (preeclampsia in her other pregnancies) Past Surgical History: no surgical history Social history: no significant social history - Obstetrical History : 6 Para: 4 Hx # Term Pregnancies: 4 Spontaneous Abortions: 1 Number of Living Children: 4 Medications and Allergies Allergies Allergy/AdvReac Type Severity Reaction Status Date / Time amoxicillin [Amoxicillin] Allergy Rash Verified 07/12/15 12:50 Latex, Natural Rubber Allergy Itching Verified 07/12/15 12:50 povidone-iodine Allergy Itching Verified 07/12/15 12:50 [From Betadine] soap [From Betadine] Allergy Itching Verified 07/12/15 12:50 Home Medications Medication Instructions Recorded Confirmed Last Taken Type Ibuprofen [Motrin 600 MG tab] 600 mg PO Q8H PRN #30 tablet 07/12/15 10/18/18 Unknown Rx Promethazine Dm (Nf) [Phenergan Dm 5 ml PO Q6H PRN 7 Days 07/12/15 10/18/18 Unknown Rx 6.25/15 mg 5 ml] traMADoL [Ultram 50 MG tab] 50 mg PO Q4HR PRN #20 tablet 07/12/15 10/18/18 Unknown Rx Ferrous Sulfate [Feosol 325 MG tab] 325 mg PO BID #60 tablet 10/20/18 Unknown Rx Ibuprofen [Motrin 600 MG tab] 600 mg PO Q6HR #30 tablet 10/20/18 Unknown Rx Vit-Fe Fumar-FA [ 1 each PO QDAY #30 tablet 10/20/18 Unknown Rx Vitamin] labetaloL [Labetalol 100mg TAB] 200 mg PO BID #30 tablet 10/20/18 Unknown Rx Active Meds: Active Medications Acetaminophen (Acetaminophen 325 Mg Tab) 650 mg PO Q4H PRN PRN Reason: Pain MILD(1-3)/Fever >100.5/CRUZ Betamethasone Acet/Betameth SodPhos (Betamet Acet/Betamet Na Ph 6 Mg/Ml Inj 5 Ml Mdv) 12 mg IM Q24HR NAOMY Stop: 12/24/20 19:01 Betamethasone Acet/Betameth SodPhos (Betamet Acet/Betamet Na Ph 6 Mg/Ml Inj 5 Ml Mdv) 12 mg IM Q24HR NAOMY Docusate Sodium (Docusate Sodium 100 Mg Cap) 100 mg PO Q12H PRN PRN Reason: Constipation Hydralazine HCl (Hydralazine 20 Mg/1 Ml Inj) 10 mg IV ONCE NR Stop: 12/23/20 18:30 Last Admin: 12/23/20 18:13 Dose: 10 mg Documented by: Lactated Ringer's (Lactated Ringers) 1,000 mls @ 125 mls/hr IV DIRECT NAOMY Last Admin: 12/23/20 15:43 Dose: 125 mls/hr Documented by: Clindamycin HCl (Cleocin 900 Mg/50 Ml) 900 mg in 50 mls @ 100 mls/hr IV Q8H NAOMY; Protocol Stop: 12/25/20 11:29 Magnesium Sulfate (Magnesium Sulfate 40gm/1000ml) 40 gm in 1,000 mls @ 50 mls/hr IV DIRECT NAOMY Magnesium Sulfate (Magnesium Sulfate 4gm/100ml) 4 gm in 100 mls @ 300 mls/hr IV ONCE ONE Stop: 12/23/20 18:38 Labetalol HCl (Labetalol 200 Mg Tab) 200 mg PO BID [facility] Multivitamins/Iron/Calcium ( [id number]-Tf Fumarate-Folic Acid Vit Tab) 1 each PO QDAY [facility] Ondansetron HCl (Ondansetron 4 Mg/2 Ml Inj) 4 mg IV Q6H PRN PRN Reason: Nausea And Vomiting Review of Systems All systems: negative (except HPI) - Vital Signs Vital signs: Vital Signs Pulse BP 67 189/109 12/23/20 15:00 12/23/20 15:00 Temp Pulse Resp BP Pulse Ox 98.3 F 76 20 172/81 12/23/20 15:04 12/23/20 18:20 12/23/20 15:04 12/23/20 18:20 - Physical Exam Abdomen: Positive: normal appearance, soft. Negative: tenderness - Obstetrical FHR: category 1 Cervical Dilatation: 2 Cervical Effacement Percentage: 50 station: -2, -3 Uterine Contraction Pattern: Irregular Results Result Diagrams: 12/23/20 Unknown 12/23/20 Unknown Abnormal lab results 12/23/20 12/23/20 12/23/20 Range/Units 17:25 Unknown Unknown RDW 16.2 H (13.2-15.2) % AST (5-40) units/L ALT (7-56) units/L Lactate Dehydrogenase (91-180) units/L Urine WBC (Auto) 9.0 H (0.0-6.0) /HPF Urine Creatinine 42.5 H (0.1-20.0) mg/dL Urine Total Protein 13 H (5-11.8) mg/dL 12/23/20 Range/Units Unknown RDW (13.2-15.2) % AST 57 H (5-40) units/L ALT 101 H (7-56) units/L Lactate Dehydrogenase 292 H (91-180) units/L Urine WBC (Auto) (0.0-6.0) /HPF Urine Creatinine (0.1-20.0) mg/dL Urine Total Protein (5-11.8) mg/dL All other labs normal. Assessment and Plan - Patient Problems (1) Preeclampsia Onset Date: 10/16/18 Current Visit: No Status: Resolved Qualifiers: Trimester: third trimester Qualified Code(s): O14.93 - Unspecified pre- eclampsia, third trimester Plan to address problem: PT with preeclampsia with severe features. In addition to her CRUZ and BPs that have been in the severe range, her AST/SLT are 57/101. Her ruine prot/cr ratio is 0.31. As a result, pt counseled about risks, benefits and alternative, fidelia since she is premature. She does agree to proceed with IOL. Will start Pitocin. Start MgSO4. Will start Betamethasone, start Clindamycin. An IV hydralazine was just recently given and BPs improved. Will also add Labetalol 200 mg BID. PT agrees with the plan. All questions answered.
[2020-12-23] MEDS ORDERED: OXYTOCIN DRIP 30,000 MILLIUNITS/500 ML BAG IV ONE (20:15)
[2020-12-23] MEDS: MAGNESIUM SULFATE 40GM/1000ML 40 GM/1,000 ML BAG IV SCH (20:42)
[2020-12-23] MEDS ORDERED: hydrALAZINE 20 MG/1 ML INJ IV ONE (21:06)
[2020-12-23] MEDS ORDERED: BUTORPHANOL 2 MG/1 ML INJ IV ONE (21:51)
[2020-12-23] MEDS ORDERED: OXYTOCIN DRIP 30 UNITS/500 ML BAG IV SCH (23:45)
[2020-12-23] MEDS ORDERED: fentaNYL-BUPIV 2 MCG/ML-0.125% 200 MCG/100 ML BAG EPIDURAL SCH (23:45)
[2020-12-23] MEDS ORDERED: NALOXONE 2 MG/2 ML INJ IV PRN (23:49)
[2020-12-23] MEDS ORDERED: ePHEDrine SULFATE 50 MG/1 ML INJ IV PRN (23:49)
--- NOTE | 2020-12-23 23:51 | Anesthesia Consultation ---
Anesthesia Consult and Med Hx Date of service: 12/23/20 - Airway Anesthetic Teeth Evaluation: Poor ROM Head & Neck: Adequate Mental/Hyoid Distance: Adequate Mallampati Class: Class II Intubation Access Assessment: Probably Good - Pulmonary Exam CTA: Yes - Cardiac Exam Cardiac Exam: RRR - Pre-Operative Health Status ASA Pre-Surgery Classification: ASA3 Proposed Anesthetic Plan: Epidural - Pulmonary Hx Smoking: No Hx Asthma: No Hx Respiratory Symptoms: No SOB: No COPD: No Home Oxygen Therapy: No Hx Pneumonia: No Hx Sleep Apnea: No - Cardiovascular System Hx Hypertension: Yes Hx Coronary Artery Disease: No Hx Heart Attack/AMI: No Hx Angina: No Hx Percutaneous Transluminal Coronary Angioplasty (PTCA): No Hx Cardia Arrhythmia: No Hx Pacemaker: No Hx Internal Defibrillator: No Hx Valvular Heart Disease: No Hx Heart Murmur: No Hx Peripheral Vascular Disease: No - Central Nervous System Hx Neuromuscular Disorder: No Hx Seizures: No CVA: No Hx Back Pain: Yes () Hx Psychiatric Problems: No - Gastrointestinal Hx Ulcer: No Hx Gastroesophageal Reflux Disease: Yes (associated with foods) - Endocrine Hx Renal Disease: No Hx End Stage Renal Disease: No Hx Cirrhosis: No Hx Liver Disease: No Hx Insulin Dependent Diabetes: No Hx Non-Insulin Dependent Diabetes: No Hx Thyroid Disease: No Hx Hypothyroidism: No Hx Hyperthyroidism: No - Hematic Hx Anemia: Yes Hx Sickle Cell Disease: No - Other Systems Hx Alcohol Use: No Hx Substance Use: No Hx Cancer: No Hx Obesity: Yes (denies YVROSE)
--- NOTE | 2020-12-23 23:52 | Progress Note ---
Labor Epidural - Labor Epidural Start Time: 23:10 Stop Time: 23:20 Performed by:: SIMONE WELLINGTON Procedure: Patient is requesting a laboring epidural for laboring pain. Patient IDed, H&P reviewed, all questions and concerns were answered, and consent was signed. Timeout was performed at bedside. Patient in sitting position. Sterile prep(ChloraPrep) and drape was performed. [3] ml of 1% lidocaine skin wheal at L[3]- L [4]. 18-gauge Tuohy epidural needle was advanced to loss of resistance with saline technique 8cm. Negative CSF negative blood. Epidural catheter advanced to [12] centimeters. [NEGATIVE] Aspiration [NEGATIVE] test dose. Sterile dressing applied. Patient tolerated procedure.
[2020-12-24] MEDS ORDERED: OXYTOCIN 10 UNIT/1 ML INJ ONE ×2 (02:18→02:19)
[2020-12-24] MEDS ORDERED: BENZOCAINE/MENTHOL 20/0.5% TOP SPRAY 56 GM TP PRN (02:29)
[2020-12-24] MEDS ORDERED: LANOLIN/ZINC/DIMETHICONE (LANSINOH) 7 GM TP PRN ×2 (02:29)
[2020-12-24] MEDS ORDERED: WITCH HAZEL/ GLYCERIN PAD TP PRN (02:29)
[2020-12-24] MEDS ORDERED: MAGNESIUM HYDROXIDE (MOM) ORAL LIQD UDC PO PRN (02:29)
[2020-12-24] MEDS ORDERED: ONDANSETRON 4 MG/2 ML INJ IV PRN (02:29)
[2020-12-24] MEDS ORDERED: PROMETHAZINE 25 MG TAB PO PRN (02:29)
[2020-12-24] MEDS ORDERED: CARBOPROST TROMETHAMINE 250 MCG/1 ML INJ IM PRN (02:29)
[2020-12-24] MEDS ORDERED: PROMETHAZINE 25 MG RECT SUPP PR PRN (02:29)
[2020-12-24] MEDS ORDERED: diphenhydrAMINE 25 MG CAP PO PRN (02:29)
--- NOTE | 2020-12-24 02:36 | Procedure Note ---
OB Delivery Note - Delivery Date of Delivery: 12/24/20 Surgeon: CLAUDIA SPENCE Estimated blood loss: 200cc - Vaginal Delivery presentation: vertex Delivery position: OA Intrapartum events: none Delivery induction: oxytocin Delivery augmentation: rupture of membranes Delivery monitor: external FHT Route of delivery: Delivery placenta: spontaneous Delivery cord: 3 umbilical vessels Episiotomy: none Delivery laceration: none Anesthesia: epidural Delivery comments: Anterior shoulder delivered without difficulty. Baby bulb suctioned at the perineum and again after delivery. Delayed cord clamping and cut. Baby to the warmer. Placenta delivered spontaneously and was delivered in its entirety. Good hemostasis throughout. Mother and baby stable. - A at 1 minute: 8 at 5 minutes: 9 Infant Gender: Male
[2020-12-24] MEDS: ACETAMINOPHEN 325 MG TAB PO PRN (02:38)
[2020-12-24] MEDS ORDERED: OXYTOCIN DRIP 30 UNITS/500 ML BAG IV SCH (03:00)
[2020-12-24] MEDS: IBUPROFEN 600 MG TAB PO SCH ×4 (04:23→21:02)
[2020-12-24] MEDS: PRENATAL VIT27-FE FUMARATE-FOLIC ACID VIT TAB PO SCH (10:32)
[2020-12-24] MEDS: oxyCODONE /ACETAMINOPHEN 5-325MG TAB PO PRN ×2 (11:57→17:26)
--- NOTE | 2020-12-24 16:07 | Post Anesthesia Evaluation ---
- Post Anesthesia Evaluation Patient Participated: Yes Airway Patent: Yes Stable Respiratory Function: Yes Nausea/Vomiting: No Temp > 96.8F: Yes Pain Manageable: Yes Adequeate Hydration: Yes Anesthesia Complications: No Block Receding Appropriately: Yes Patient on Ventilator: No
[2020-12-24] MEDS: MAGNESIUM SULFATE 40GM/1000ML 40 GM/1,000 ML BAG IV SCH (16:42)
[2020-12-24] MEDS: LACTATED RINGERS 1,000 ML IV SCH (16:42)
[2020-12-24] MEDS ORDERED: oxyCODONE /ACETAMINOPHEN 5-325MG TAB PO ONE (18:20)
[2020-12-24] MEDS ORDERED: oxyCODONE /ACETAMINOPHEN 5-325MG TAB PO PRN (20:00)
--- NOTE | 2020-12-24 21:01 | Event Note ---
Date: 12/24/20 Called by RN for hemorrhage with spontaneous resolution of bleeding, EBL 300 cc. Fundus firm. Continue to monitor. Consider sono if further bleeding and/or pelvic pain.
[2020-12-24] MEDS ORDERED: METHYLERGONOVINE MALEATE 0.2 MG/ML VIAL IM ONE (21:22)
[2020-12-24] MEDS ORDERED: AMMONIA INHALANT IH ONE ×4 (21:24→22:00)
[2020-12-24] MEDS ORDERED: miSOPROStol 200 MCG TAB ONE (21:26)
[2020-12-24] MEDS ORDERED: LOPERAMIDE 2 MG CAP PO PRN (21:31)
[2020-12-24] MEDS ORDERED: CARBOPROST TROMETHAMINE 250 MCG/1 ML INJ IM ONE (21:40)
[2020-12-24 22:02] LABS: Basophils % (Auto) 0.1 % (0.0-1.8); Eosinophils % (Auto) 0.1 % (0.0-4.3); Lymphocytes % (Auto) 14.2 % (13.4-35.0); Mean Corpuscular HGB Conc 32 % (30-34); Mean Corpuscular Volume 83 fl (79-97); Monocytes # (Auto) 0.7 K/mm3 (0.0-0.8); Platelet Count 318 K/mm3 (140-440); Red Blood Count 3.36 M/mm3 (3.65-5.03); Red Cell Distribution Width 16.4 % (13.2-15.2)
[2020-12-24 22:11] LABS: INR 0.93 (0.87-1.13)
[2020-12-24 22:13] LABS: Alanine Aminotransferase 72 units/L (7-56); Albumin 2.8 g/dL (3.9-5); Blood Urea Nitrogen 9 mg/dL (7-17); Calcium 6.6 mg/dL (8.4-10.2); Hemolysis Index 44
[2020-12-24 22:19] LABS: BUN/Creatinine Ratio 13
[2020-12-24] MEDS ORDERED: SENNOSIDES 8.6 MG TAB PO PRN (22:21)
--- NOTE | 2020-12-24 22:32 | Ultrasound Report ---
US OB LIMITED INDICATION / CLINICAL INFORMATION: bleeding. Rule out retained products of conception. COMPARISON: None available. FINDINGS: The uterus measures 16.6 x 10.5 x 10.5 cm. The endometrial stripe measures 1 cm AP. The endometrial c avity is empty. No abnormal vascularity is seen the endometrium/endometrial cavity on Doppler exam. Neither ovary is seen. No abnormal mass or fluid collection is identified. IMPRESSION: No sonographic evidence of retained products of conception. Signer Name: Leon Clark MD Signed: 12/24/2020 10:28 PM Workstation Name: [id number]
[2020-12-24] MEDS: DOCUSATE SODIUM 100 MG CAP PO SCH (22:56)
[2020-12-24] MEDS ORDERED: miSOPROStol 200 MCG TAB PR ONE (23:00)
--- NOTE | 2020-12-24 23:26 | Event Note ---
Date: 12/24/20 Called by RN for heavy vaginal bleeding and vasovagal episode without trauma, witnessed by RN. Patient with 600 cc clot/bright red blood passage improved with hemabate x 1. CBC, CMP, PT/PTT/INR, EKG, Ambulatory Analyst sono ordered to evaluate for retained POC. Personally seen and evaluated patient after the event. VSS, fundus firm, no clots in vaginal vault. Sono wnl, no evidence of retained POC. Now 1000 total EBL including 200 cc hemorrhage from prior episode, and 200 cc at delivery. Hgb 10.1 -> 9.0 Patient also admits constipation. Usually regular BMs. Colace BID and Senna BID ordered. Advance is indicated. Continue to monitor. Repeat CBC in AM.
[2020-12-25] MEDS ORDERED: hydrALAZINE 20 MG/1 ML INJ IV ONE (01:27)
[2020-12-25] MEDS: LACTATED RINGERS 1,000 ML IV SCH (01:29)
[2020-12-25] MEDS: ACETAMINOPHEN 325 MG TAB PO PRN (05:30)
[2020-12-25 07:48] LABS: Hematocrit 23.4 % (30.3-42.9); Hemoglobin 7.6 gm/dl (10.1-14.3); Mean Corpuscular HGB Conc 32 % (30-34); Mean Corpuscular Volume 82 fl (79-97); Platelet Count 262 K/mm3 (140-440); Red Blood Count 2.84 M/mm3 (3.65-5.03); Red Cell Distribution Width 16.9 % (13.2-15.2)
[2020-12-25] MEDS ORDERED: SODIUM CHLORIDE 0.9% 500 ML 500 ML IV NR (08:05)
[2020-12-25 08:12] LABS: Alanine Aminotransferase 56 units/L (7-56); Albumin 2.3 g/dL (3.9-5); Blood Urea Nitrogen 7 mg/dL (7-17); Calcium 6.3 mg/dL (8.4-10.2); Hemolysis Index 0
[2020-12-25 08:41] LABS: BUN/Creatinine Ratio 14
--- NOTE | 2020-12-25 08:48 | Progress Note ---
Assessment and Plan POSR ANEMIA FROM DELAYED PPBLEED. WILL TRANSFUSE TODAY WITH 2 UNITS OF BLOOD. - Patient Problems (1) Anemia Current Visit: Yes Status: Acute Qualifiers: Anemia type: other cause Other causes of anemia: acute posthemorrhagic Qualified Code(s): D62 - Acute posthemorrhagic anemia (2) 36 weeks gestation of Onset Date: 10/16/18 Current Visit: No Status: Resolved Subjective - Subjective Date of service: 12/25/20 Principal diagnosis: , post hemmorhage, blood loss anemia Interval history: PT HAD SIGNIFICANT BLOOD LOSS AFTER DELIVERY. SHE FEELS WEAK. HER HGB IS 7.6/23% TODAY. WILL TRANSFUSE TODAY WITH 2 UNITS OF PRBC. Patient reports: appetite normal ([employer] APP[employer]) : doing well, in NICU, , nursing well, transported, other, bottle feeding Objective - Vital Signs Latest vital signs: Vital Signs Temp Pulse Resp BP BP Pulse Ox 12/25/20 05:10 97.6 F 69 17 127/75 100 12/25/20 04:20 97.5 F L 12/25/20 04:15 68 131/73 12/25/20 04:12 68 99 12/25/20 04:07 67 99 12/25/20 04:02 66 99 12/25/20 03:57 65 100 12/25/20 03:52 67 99 12/25/20 03:51 66 123/68 12/25/20 03:47 66 98 12/25/20 03:42 67 99 12/25/20 03:37 67 99 12/25/20 03:32 66 100 12/25/20 03:27 81 100 12/25/20 03:22 62 100 12/25/20 03:21 72 136/83 12/25/20 03:17 61 100 12/25/20 03:12 62 100 12/25/20 03:07 62 100 12/25/20 03:02 61 100 12/25/20 02:57 62 99 12/25/20 02:52 61 100 12/25/20 02:51 60 147/94 12/25/20 02:47 62 100 12/25/20 02:42 61 100 12/25/20 02:37 61 99 12/25/20 02:32 62 100 12/25/20 02:27 62 100 04/30/21 02:22 60 100 12/25/20 02:19 67 146/70 12/25/20 02:17 60 99 12/25/20 02:12 62 100 12/25/20 02:07 61 100 12/25/20 02:03 59 L 143/91 12/25/20 02:02 61 100 12/25/20 01:57 63 99 12/25/20 01:52 62 100 12/25/20 01:48 62 144/92 12/25/20 01:47 64 100 12/25/20 01:42 64 100 12/25/20 01:37 62 100 12/25/20 01:33 62 145/91 12/25/20 01:32 65 100 12/25/20 01:27 63 100 12/25/20 01:22 67 100 12/25/20 01:18 64 151/94 12/25/20 01:17 67 100 12/25/20 01:12 66 100 12/25/20 01:07 65 100 12/25/20 01:03 64 149/86 12/25/20 01:02 65 99 12/25/20 00:57 66 99 12/25/20 00:52 65 100 12/25/20 00:48 63 155/88 12/25/20 00:47 64 99 12/25/20 00:42 64 99 12/25/20 00:37 63 100 12/25/20 00:34 63 150/86 12/25/20 00:32 63 99 12/25/20 00:27 64 100 12/25/20 00:22 64 96 12/25/20 00:17 93.9 F L 63 100 12/25/20 00:12 60 166/106 100 12/25/20 00:11 60 167/105 12/25/20 00:07 62 100 12/25/20 00:02 65 100 12/24/20 23:57 63 100 12/24/20 23:52 62 100 12/24/20 23:47 63 100 12/24/20 23:42 62 100 12/24/20 23:37 64 100 12/24/20 23:32 64 100 12/24/20 23:27 64 100 12/24/20 23:22 63 100 12/24/20 23:21 61 148/93 12/24/20 23:17 62 100 12/24/20 23:12 60 100 12/24/20 23:07 61 100 12/24/20 23:02 62 100 12/24/20 22:57 59 L 100 12/24/20 22:56 63 176/95 12/24/20 22:55 61 176/95 12/24/20 22:52 61 100 12/24/20 22:50 61 163/88 12/24/20 22:47 60 99 12/24/20 22:42 61 98 12/24/20 22:40 58 L 167/90 12/24/20 22:37 60 161/89 99 12/24/20 22:32 61 98 12/24/20 22:30 60 161/89 12/24/20 22:27 63 98 12/24/20 22:22 65 97 12/24/20 22:20 64 165/88 12/24/20 22:17 65 97 12/24/20 22:12 66 98 12/24/20 22:10 64 156/94 12/24/20 22:07 68 98 12/24/20 21:57 68 171/77 12/24/20 21:55 67 176/84 12/24/20 21:53 70 148/81 12/24/20 21:51 70 162/85 12/24/20 21:49 71 137/83 12/24/20 21:48 71 150/107 12/24/20 21:41 68 161/91 12/24/20 21:40 71 143/85 12/24/20 21:38 69 151/91 12/24/20 21:37 68 154/78 12/24/20 21:35 70 160/76 12/24/20 21:34 74 151/92 90 12/24/20 21:29 70 159/98 100 12/24/20 21:06 66 100 12/24/20 21:05 73 90 12/24/20 21:02 67 101/53 12/24/20 21:01 70 100 12/24/20 20:56 84 100 12/24/20 20:51 78 100 12/24/20 20:47 73 143/85 12/24/20 20:46 76 100 12/24/20 20:41 75 100 12/24/20 20:36 76 99 04/29/21 20:31 76 100 12/24/20 20:26 74 100 12/24/20 20:21 75 100 12/24/20 20:20 18 12/24/20 20:16 75 143/91 100 12/24/20 20:11 73 100 12/24/20 20:06 71 100 12/24/20 20:03 71 143/92 12/24/20 20:01 74 100 12/24/20 19:56 72 100 12/24/20 19:55 97.4 F L 18 12/24/20 19:51 76 100 12/24/20 19:46 79 100 12/24/20 19:41 72 100 12/24/20 19:36 69 99 12/24/20 19:33 72 147/81 12/24/20 19:31 70 100 12/24/20 19:26 70 100 12/24/20 19:21 72 99 12/24/20 19:16 72 98 12/24/20 19:14 69 92 12/24/20 19:11 74 100 12/24/20 19:06 68 98 12/24/20 19:03 68 145/84 12/24/20 19:01 67 99 12/24/20 18:56 72 100 12/24/20 18:51 71 100 12/24/20 18:46 72 100 12/24/20 18:41 67 100 12/24/20 18:36 63 100 12/24/20 18:33 63 110/62 12/24/20 18:31 77 99 12/24/20 18:26 75 99 12/24/20 18:21 72 99 12/24/20 18:16 80 100 12/24/20 18:11 74 98 12/24/20 18:06 75 98 12/24/20 18:03 75 140/74 12/24/20 18:01 73 98 12/24/20 17:56 74 97 12/24/20 17:51 74 100 12/24/20 17:46 74 100 12/24/20 17:41 79 100 12/24/20 17:36 73 100 12/24/20 17:33 75 168/94 12/24/20 17:31 78 99 12/24/20 17:29 77 77 L 12/24/20 17:26 77 100 12/24/20 17:21 80 99 12/24/20 17:16 79 99 12/24/20 17:11 82 100 12/24/20 17:06 77 100 12/24/20 17:03 76 167/100 12/24/20 17:01 79 100 12/24/20 16:56 70 99 12/24/20 16:51 71 99 12/24/20 16:47 70 169/95 12/24/20 16:46 72 12 169/95 100 12/24/20 16:41 73 100 12/24/20 16:36 78 100 12/24/20 16:35 76 162/83 12/24/20 16:33 75 175/95 12/24/20 16:31 75 99 12/24/20 16:26 74 100 12/24/20 16:21 69 99 12/24/20 16:16 68 100 12/24/20 16:11 71 100 12/24/20 16:06 71 99 12/24/20 16:03 71 169/103 12/24/20 16:01 69 100 12/24/20 15:56 72 100 12/24/20 15:51 72 100 12/24/20 15:46 71 100 12/24/20 15:41 69 100 12/24/20 15:36 76 100 12/24/20 15:33 75 160/97 12/24/20 15:31 74 100 12/24/20 15:26 75 100 12/24/20 15:21 76 100 12/24/20 15:16 74 99 12/24/20 15:11 81 99 12/24/20 15:06 76 100 12/24/20 15:03 74 143/84 12/24/20 15:01 71 99 12/24/20 14:56 70 100 12/24/20 14:51 70 100 12/24/20 14:46 68 100 12/24/20 14:41 70 100 12/24/20 14:36 70 100 12/24/20 14:33 70 155/92 12/24/20 14:31 72 99 12/24/20 14:26 72 99 12/24/20 14:21 74 100 12/24/20 14:16 76 100 12/24/20 14:11 76 100 12/24/20 14:06 71 98 12/24/20 14:03 71 137/83 12/24/20 14:01 74 100 12/24/20 13:56 73 100 12/24/20 13:51 72 100 12/24/20 13:46 75 100 12/24/20 13:41 75 99 12/24/20 13:36 77 100 12/24/20 13:33 76 156/87 12/24/20 13:31 76 100 12/24/20 13:26 79 100 12/24/20 13:21 77 100 12/24/20 13:16 79 100 12/24/20 13:11 84 100 12/24/20 13:06 76 100 12/24/20 13:03 77 135/75 12/24/20 13:01 78 100 12/24/20 12:56 77 100 12/24/20 12:51 77 100 12/24/20 12:46 77 100 12/24/20 12:41 78 100 12/24/20 12:36 75 100 12/24/20 12:33 76 172/94 12/24/20 12:31 79 100 12/24/20 12:26 75 100 12/24/20 12:21 74 100 12/24/20 12:16 77 100 12/24/20 12:11 74 100 12/24/20 12:06 82 100 12/24/20 12:03 97.2 F L 75 18 141/87 141/87 100 12/24/20 12:01 78 100 12/24/20 11:56 79 100 12/24/20 11:55 82 93 12/24/20 11:51 80 99 12/24/20 11:46 81 99 12/24/20 11:41 84 100 12/24/20 11:36 84 100 12/24/20 11:33 80 136/81 12/24/20 11:31 85 98 12/24/20 11:26 77 99 12/24/20 11:21 78 100 12/24/20 11:16 77 99 12/24/20 11:11 78 99 12/24/20 11:06 78 99 12/24/20 11:03 80 161/96 12/24/20 11:01 81 100 12/24/20 10:56 81 100 12/24/20 10:51 93 H 98 12/24/20 10:46 83 99 12/24/20 10:41 83 100 12/24/20 10:36 85 100 12/24/20 10:33 85 142/91 12/24/20 10:32 87 164/86 12/24/20 10:31 84 164/86 99 12/24/20 10:26 87 100 12/24/20 10:21 86 100 12/24/20 10:16 82 100 12/24/20 10:11 83 100 12/24/20 10:06 89 100 12/24/20 10:03 87 164/86 12/24/20 10:01 89 100 12/24/20 09:56 86 99 12/24/20 09:51 90 100 12/24/20 09:46 90 99 12/24/20 09:41 83 99 12/24/20 09:36 87 100 12/24/20 09:33 87 135/93 12/24/20 09:31 90 100 12/24/20 09:26 83 100 12/24/20 09:21 89 100 12/24/20 09:16 84 100 12/24/20 09:11 79 100 12/24/20 09:06 84 100 12/24/20 09:03 82 158/93 12/24/20 09:01 83 100 12/24/20 08:56 82 99 12/24/20 08:51 80 100 12/24/20 08:46 80 99 Intake and Output 12/24/20 12/25/20 12/25/20 23:59 07:59 15:59 Intake Total 1400 658.75 Output Total 1650 1999 Balance -250 -1341.25 Intake: IV 1000 658.75 Lactated Ringers 1,000 ml 658.75 @ 125 mls/hr IV DIRECT NAOMY Rx#:[id number] MAGNESIUM SULFATE 40GM/ 1000 1000ML 40 gm In 1,000 ml @ 2 GM/HR 50 mls/hr IV DIRECT NAOMY Rx#:[id number] Oral 400 Output: Urine 1649 1999 Indwelling Catheter 1649 1999 Other: Total, Intake Amount 400 Total, Output Amount 200 400 - Exam Breasts: Present: deferred Cardiovascular: Present: Regular rate Abdomen: Present: normal appearance, soft Vulva: both: normal Uterus: Present: firm Extremities: Present: normal Deep Tendon Reflex Grade: Normal +2 Incision: Present: normal, dry, intact - Labs Labs: Abnormal lab results 12/23/20 12/24/20 12/24/20 Range/Units 18:00 13:10 17:31 WBC (4.5-11.0) K/mm3 RBC (3.65-5.03) M/mm3 Hgb (10.1-14.3) gm/dl Hct (30.3-42.9) % MCH (28-32) pg RDW (13.2-15.2) % Seg Neutrophils % (40.0-70.0) % Seg Neutrophils # (1.8-7.7) K/mm3 APTT (24.2-36.6) Sec. Sodium (137-145) mmol/L Chloride (98-107) mmol/L Carbon Dioxide (22-30) mmol/L Creatinine (0.6-1.2) mg/dL Glucose (65-100) mg/dL Calcium (8.4-10.2) mg/dL Magnesium 6.30 H 5.80 H (1.7-2.3) mg/dL AST (5-40) units/L ALT (7-56) units/L Alkaline Phosphatase (35-129) units/L Total Protein (6.3-8.2) g/dL Albumin (3.9-5) g/dL Crossmatch See Detail 12/24/20 12/24/20 12/24/20 Range/Units 21:45 21:45 21:45 WBC 14.2 H (4.5-11.0) K/mm3 RBC 3.36 L (3.65-5.03) M/mm3 Hgb 9.0 L (10.1-14.3) gm/dl Hct 28.0 L (30.3-42.9) % MCH 27 L (28-32) pg RDW 16.4 H (13.2-15.2) % Seg Neutrophils % 80.6 H (40.0-70.0) % Seg Neutrophils # 11.5 H (1.8-7.7) K/mm3 APTT 22.9 L (24.2-36.6) Sec. Sodium 129 L (137-145) mmol/L Chloride (98-107) mmol/L Carbon Dioxide 20 L (22-30) mmol/L Creatinine (0.6-1.2) mg/dL Glucose 115 H (65-100) mg/dL Calcium 6.6 L (8.4-10.2) mg/dL Magnesium (1.7-2.3) mg/dL AST 46 H (5-40) units/L ALT 72 H (7-56) units/L Alkaline Phosphatase 164 H (35-129) units/L Total Protein 6.0 L (6.3-8.2) g/dL Albumin 2.8 L (3.9-5) g/dL Crossmatch 12/24/20 12/25/20 12/25/20 Range/Units 23:47 07:25 07:25 WBC 12.8 H (4.5-11.0) K/mm3 RBC 2.84 L (3.65-5.03) M/mm3 Hgb 7.6 L (10.1-14.3) gm/dl Hct 23.4 L (30.3-42.9) % MCH 27 L (28-32) pg RDW 16.9 H (13.2-15.2) % Seg Neutrophils % (40.0-70.0) % Seg Neutrophils # (1.8-7.7) K/mm3 APTT (24.2-36.6) Sec. Sodium 127 L (137-145) mmol/L Chloride 97.9 L (98-107) mmol/L Carbon Dioxide 21 L (22-30) mmol/L Creatinine 0.5 L (0.6-1.2) mg/dL Glucose (65-100) mg/dL Calcium 6.3 L (8.4-10.2) mg/dL Magnesium 6.00 H (1.7-2.3) mg/dL AST (5-40) units/L ALT (7-56) units/L Alkaline Phosphatase (35-129) units/L Total Protein 5.2 L (6.3-8.2) g/dL Albumin 2.3 L (3.9-5) g/dL Crossmatch - Allied health notes Allied health notes reviewed: nursing
[2020-12-25] MEDS ORDERED: SODIUM CHLORIDE 0.9% 500 ML 500 ML IV SCH (09:00)
[2020-12-25] MEDS: PRENATAL VIT27-FE FUMARATE-FOLIC ACID VIT TAB PO SCH (10:09)
[2020-12-25] MEDS: DOCUSATE SODIUM 100 MG CAP PO SCH ×2 (10:09→22:00)
--- NOTE | 2020-12-25 13:59 | Electrocardiograph Report ---
[facility] Test Date: 2020-12-24 Test Time: 22:44:41 Pat Name: CORRINE HUYNH Department: Room: 2138 1 Gender: F Fructose Loader: LUIS DANIEL : 1985 Requested By: CLAUDIA SPENCE Order Number: [id number] Reading MD: Yonathan Chong Measurements Intervals [place] Rate: 60 P: 55 MT: 187 QRS: 56 QRSD: 93 T: 60 QT: 513 QTc: 514 Interpretive Statements Sinus rhythm Probable left ventricular hypertrophy Nonspecific anterior T wave abnormality Prolonged QT interval No previous ECG available for comparison Electronically Signed On 12-25-2020 13:59:00 EDT by Yonathan Chong
[2020-12-25] MEDS: IBUPROFEN 600 MG TAB PO SCH (22:05)
[2020-12-26] MEDS: IBUPROFEN 600 MG TAB PO SCH ×4 (06:31→21:00)
[2020-12-26] MEDS: DOCUSATE SODIUM 100 MG CAP PO SCH ×2 (09:00→22:25)
[2020-12-26] MEDS: PRENATAL VIT27-FE FUMARATE-FOLIC ACID VIT TAB PO SCH (09:01)
--- NOTE | 2020-12-26 11:36 | Discharge Summary ---
Providers - Providers Date of Admission: 12/23/20 15:03 Date of discharge: 12/26/20 Attending physician: CLAUDIA SPENCE Primary care physician: CLAUDIA SPENCE Hospitalization Delivery: Episiotomy: none Laceration: none Other procedures: none complications: other (anemia transfused with 2 units of prbcs.) Hospital course: pt did well after transfusion. ready for d/c on second day pp. Condition at discharge: Good Disposition: DC-01 TO HOME OR SELFCARE - Discharge Diagnoses (1) Anemia Status: Acute Qualifiers: Anemia type: other cause Other causes of anemia: acute posthemorrhagic Qualified Code(s): D62 - Acute posthemorrhagic anemia (2) 36 weeks gestation of Status: Resolved Plan - Provider Discharge Summary Activity: routine, no strenuous exercise Diet: routine Instructions: routine (take iron tid.) Additional instructions: [] Smoking cessation referral if applicable(refer to patient education folder for contact #) [] Refer to [facility]'s [facility] Booklet Call your doctor immediately for: * Fever > 100.5 * Heavy vaginal bleeding ( >1 pad per hour) * Severe persistent headache * Shortness of breath * Reddened, hot, painful area to leg or breast * Drainage or odor from incision. * Keep incision clean and dry at all times and follow doctor's instructions regarding bathing/showering - Follow up plan Follow up: CLAUDIA SPENCE MD [Primary Care Provider] - 7 Days Pending Studies pt ready for d/c.
[2020-12-26 15:52] LABS: Hematocrit 26.1 % (30.3-42.9); Hemoglobin 8.6 gm/dl (10.1-14.3); Mean Corpuscular HGB Conc 33 % (30-34); Mean Corpuscular Volume 86 fl (79-97); Platelet Count 283 K/mm3 (140-440); Red Blood Count 3.05 M/mm3 (3.65-5.03); Red Cell Distribution Width 16.8 % (13.2-15.2)
[2020-12-26 17:43] LABS: Total Cells Counted 100
[2020-12-26 17:44] LABS: Giant Platelets Few; Platelet Estimate Consistent w Auto; RBC Morphology Normal
[2020-12-27] MEDS: IBUPROFEN 600 MG TAB PO SCH ×4 (03:00→21:00)
[2020-12-27] MEDS: PRENATAL VIT27-FE FUMARATE-FOLIC ACID VIT TAB PO SCH (09:08)
[2020-12-27] MEDS: DOCUSATE SODIUM 100 MG CAP PO SCH ×2 (09:08→22:11)
--- NOTE | 2020-12-27 14:58 | Progress Note ---
Assessment and Plan A: day 3 S/P . Preeclampsia. Uncontrolled blood pressure. Anemia. P: Cancelled discharge order. Hospitalist consult. Continue oral iron supplementation. Subjective - Subjective Date of service: 12/27/20 Principal diagnosis: day 3 S/P ; preeclampsia Interval history: Nurse called. States patient has discharge order in but blood pressure has gone up. Patient is taking Labetalol 300 mg po BID. Discharge order cancelled and requested consult for hospitalist. Consulted with Dr. Baum re: this patient and he states he agrees with above. Patient is not and she is not pumping or saving breastmilk. Patient reports: voiding normally, pain well controlled, ambulating normally, no nauseated [place]: in NICU, bottle feeding Objective - Vital Signs Latest vital signs: Vital Signs Temp Pulse Resp BP BP Pulse Ox 12/27/20 14:04 73 165/93 12/27/20 08:53 98.4 F 63 20 168/94 100 12/27/20 01:55 98.4 F 84 20 144/83 99 12/26/20 22:26 75 141/79 12/26/20 22:25 72 141/79 12/26/20 20:23 90 150/91 100 12/26/20 16:45 97.9 F 70 18 166/87 100 Intake and Output 12/26/20 12/27/20 12/27/20 23:59 07:59 15:59 Intake Total 1080 240 240 Balance 1080 240 240 Intake: Oral 720 240 240 Intake, Free Water 360 Other: Total, Intake Amount 240 240 240 # Voids Void 1 1 1 # Bowel Movements 1 - Exam Cardiovascular: Present: Regular rate Lungs: Present: Clear to auscultation Abdomen: Present: normal appearance, soft. Absent: distention, tenderness, guarding, rigidity Uterus: Present: normal, firm, fundal height below umbilicus. Absent: bogginess, tenderness Extremities: Absent: tenderness - Labs Labs: Abnormal lab results 12/26/20 Range/Units 13:45 RBC 3.05 L (3.65-5.03) M/mm3 Hgb 8.6 L (10.1-14.3) gm/dl Hct 26.1 L (30.3-42.9) % RDW 16.8 H (13.2-15.2) % Seg Neuts % (Manual) 81.0 H (40.0-70.0) % Seg Neutrophils # Man 8.8 H (1.8-7.7) K/mm3
--- NOTE | 2020-12-27 15:06 | Consultation ---
History of Present Illness - Reason for Consult Consult date: 12/27/20 Hypertensioin Requesting physician: KRISTY GOVEA - History of Present Illness 35 YO Female S/P secondary to Preeclampsia. Consult placed for HTN. Patient seen and evaluated in her room. Patient denies headache, fever, chills, chest pain, palpitation, shortness of breath. No reported nursing events. Past History Past Medical History: hypertension Past Surgical History: No surgical history Social history: no significant social history Family history: hypertension Medications and Allergies Allergies Allergy/AdvReac Type Severity Reaction Status Date / Time amoxicillin [Amoxicillin] Allergy Rash Verified 07/12/15 12:50 Latex, Natural Rubber Allergy Itching Verified 07/12/15 12:50 povidone-iodine Allergy Itching Verified 07/12/15 12:50 [From Betadine] soap [From Betadine] Allergy Itching Verified 07/12/15 12:50 Home Medications Medication Instructions Recorded Confirmed Last Taken Type Ibuprofen [Motrin 600 MG tab] 600 mg PO Q8H PRN #30 tablet 07/12/15 12/26/20 Unknown Rx Promethazine Dm (Nf) [Phenergan Dm 5 ml PO Q6H PRN 7 Days 07/12/15 12/26/20 Unknown Rx 6.25/15 mg 5 ml] traMADoL [Ultram 50 MG tab] 50 mg PO Q4HR PRN #20 tablet 07/12/15 12/26/20 Unknown Rx Ferrous Sulfate [Feosol 325 MG tab] 325 mg PO BID #60 tablet 10/20/18 12/26/20 Unknown Rx Ibuprofen [Motrin 600 MG tab] 600 mg PO Q6HR #30 tablet 10/20/18 12/26/20 Unknown Rx Vit-Fe Fumar-FA [ 1 each PO QDAY #30 tablet 10/20/18 12/26/20 Unknown Rx Vitamin] labetaloL [Labetalol 100mg TAB] 200 mg PO BID #30 tablet 10/20/18 12/26/20 Unknown Rx Active Meds: Active Medications Acetaminophen (Acetaminophen 325 Mg Tab) 650 mg PO Q4H PRN PRN Reason: Pain MILD(1-3)/Fever >100.5/CRUZ Last Admin: 12/25/20 05:30 Dose: 650 mg Documented by: Benzocaine/Menthol (Benzocaine/Menthol 20/0.5% [place] 56 Gm) 1 spray TP PRN PRN PRN Reason: Episiotomy Pain Bisacodyl (Bisacodyl 10 Mg Rect Supp) 10 mg SD BID PRN PRN Reason: Constipation Diphenhydramine HCl (Diphenhydramine 25 Mg Cap) 25 mg PO Q6H PRN PRN Reason: Itching Docusate Sodium (Docusate Sodium 100 Mg Cap) 100 mg PO Q12H PRN PRN Reason: Constipation Docusate Sodium (Docusate Sodium 100 Mg Cap) 100 mg PO BID [facility] Last Admin: 12/27/20 09:08 Dose: 100 mg Documented by: Ephedrine Sulfate (Ephedrine Sulfate 50 Mg/1 Ml Inj) 10 mg IV Q2M PRN PRN Reason: Hypotension Lactated Ringer's (Lactated Ringers) 1,000 mls @ 125 mls/hr IV DIRECT [facility] Last Admin: 12/25/20 01:29 Dose: 75 mls/hr Documented by: Magnesium Sulfate (Magnesium Sulfate 40gm/1000ml) 40 gm in 1,000 mls @ 50 mls/hr IV DIRECT [facility] Last Admin: 12/24/20 16:42 Dose: 2 gm/hr, 50 mls/hr Documented by: Fentanyl/Bupivacaine/Sodium Chlor (Fentanyl-Bupiv 2 Mcg/Ml-0.125%) 200 mcg in 100 mls @ 12 mls/hr EPIDURAL TITR [facility]; Protocol Last Admin: 12/24/20 00:09 Dose: 12 mls/hr Documented by: Oxytocin/Sodium Chloride (Pitocin/Ns 30 Unit/500ml) 30 units in 500 mls @ 40 mls/hr IV TITR [facility]; Protocol Ibuprofen (Ibuprofen 600 Mg Tab) 600 mg PO Q6H [facility] Last Admin: 12/27/20 05:32 Dose: 600 mg Documented by: Labetalol HCl (Labetalol 200 Mg Tab) 200 mg PO BID [facility] Last Admin: 12/27/20 09:08 Dose: 200 mg Documented by: Labetalol HCl (Labetalol 100 Mg Tab) 100 mg PO BID [facility] Last Admin: 12/27/20 09:08 Dose: 100 mg Documented by: Loperamide HCl (Loperamide 2 Mg Cap) 2 mg PO Q2H PRN PRN Reason: Diarrhea Last Admin: 12/24/20 22:17 Dose: 2 mg Documented by: Magnesium Hydroxide (Magnesium Hydroxide (Mom) Oral Liqd Udc) 30 ml PO HS PRN PRN Reason: Constipation Last Admin: 12/25/20 03:25 Dose: 30 ml Documented by: Multi-Ingredient Ointment (Lanolin/Zinc/Dimethicone (Lansinoh) 7 Gm) 1 applic TP PRN PRN PRN Reason: Sore Nipples Multi-Ingredient Ointment (Lanolin/Zinc/Dimethicone (Lansinoh) 7 Gm) 1 applic TP PRN PRN PRN Reason: dryness/cracking Multivitamins/Iron/Calcium ( Sqd67-Bh Fumarate-Folic Acid Vit Tab) 1 each PO QDAY NAOMY Last Admin: 12/27/20 09:08 Dose: 1 each Documented by: Naloxone HCl (Naloxone 2 Mg/2 Ml Inj) 0.2 mg IV Q5M PRN PRN Reason: Respiratory sedation Ondansetron HCl (Ondansetron 4 Mg/2 Ml Inj) 4 mg IV Q8H PRN PRN Reason: Nausea And Vomiting Oxycodone/Acetaminophen (Oxycodone /Acetaminophen 5-325mg Tab) 1 tab PO Q6H PRN PRN Reason: Pain, Moderate (4-6) Last Admin: 12/24/20 17:26 Dose: 1 tab Documented by: Oxycodone/Acetaminophen (Oxycodone /Acetaminophen 5-325mg Tab) 2 tab PO Q4H PRN PRN Reason: Pain , Severe (7-10) Last Admin: 12/24/20 20:20 Dose: 2 tab Documented by: Promethazine HCl (Promethazine 25 Mg Rect Supp) 25 mg SD Q6H PRN PRN Reason: Nausea And Vomiting Promethazine HCl (Promethazine 25 Mg Tab) 25 mg PO Q6H PRN PRN Reason: Nausea And Vomiting Senna (Sennosides 8.6 Mg Tab) 8.6 mg PO Q12H PRN PRN Reason: Laxative Effect Sodium Chloride (Sodium Chloride 0.9% 10 Ml Flush Syringe) 10 ml IV PRN PRN PRN Reason: LINE FLUSH Witch Kiki/Glycerin (Witch Kiki/ Glycerin Pad) 1 each TP PRN PRN PRN Reason: Hemorrhoid/cleansing/soothing Review of Systems Constitutional: no weight loss, no weight gain, no fever, no chills Ears, nose, mouth and throat: no ear pain, no tinnitis, no decreased hearing, no nasal congestion Breasts: no change in shape, no swelling, no mass Cardiovascular: no chest pain, no orthopnea, no palpitations, no rapid/irregular heart beat, no edema, no syncope Respiratory: no cough, no excessive sputum, no hemoptysis, no shortness of breath Gastrointestinal: no abdominal pain, no vomiting, no change in bowel habits, no coffee ground emesis Genitourinary Female: no pelvic pain, no flank pain, no dysuria, no urgency Rectal: no pain, no incontinence, no bleeding Musculoskeletal: no neck stiffness, no neck pain, no shooting arm pain, no arm numbness/tingling, no low back pain Integumentary: no rash, no pruritis, no redness, no sores, no wounds, no boils Neurological: no head injury, no paralysis, no weakness, no numbness, no seizures, no tremors Psychiatric: no anxiety, no change in sleep habits, no insomnia, no hypersomnia, no change in appetite, no suicidal ideation, no disorientation Endocrine: no cold intolerance, no heat intolerance, no polyphagia, no excessive thirst, no polyuria, no excessive sweating Hematologic/Lymphatic: no easy bruising, no easy bleeding, no lymphadenopathy Allergic/Immunologic: no urticaria, no wheezing, no angioedema Exam - Constitutional Vitals: Temp Pulse Resp BP Pulse Ox 98.4 F 73 20 165/93 100 12/27/20 08:53 12/27/20 14:04 12/27/20 08:53 12/27/20 14:04 12/27/20 08:53 General appearance: Present: no acute distress, well-nourished - EENT Eyes: Present: PERRL ENT: hearing intact, clear oral mucosa - Neck Neck: Present: supple, normal ROM - Respiratory Respiratory effort: normal Respiratory: bilateral: CTA - Cardiovascular Heart Sounds: Present: S1 & S2. Absent: rub, click - Extremities Extremities: pulses symmetrical, No edema Peripheral Pulses: within normal limits - Abdominal General gastrointestinal: Present: soft, non-tender, non-distended, normal bowel sounds Female genitourinary: Present: normal - Integumentary Integumentary: Present: clear, warm, dry - Musculoskeletal Musculoskeletal: gait normal, strength equal bilaterally - Psychiatric Psychiatric: appropriate mood/affect, intact judgment & insight - Neurologic Neurologic: CNII-XII intact, moves all extremities Results - Labs CBC & Chem 7: 12/26/20 13:45 12/25/20 07:25 Labs: Abnormal lab results 12/26/20 Range/Units 13:45 RBC 3.05 L (3.65-5.03) M/mm3 Hgb 8.6 L (10.1-14.3) gm/dl Hct 26.1 L (30.3-42.9) % RDW 16.8 H (13.2-15.2) % Seg Neuts % (Manual) 81.0 H (40.0-70.0) % Seg Neutrophils # Man 8.8 H (1.8-7.7) K/mm3 Assessment and Plan - Patient Problems (1) Hypertension Current Visit: Yes Status: Acute Qualifiers: Hypertension type: unspecified Qualified Code(s): I10 - Essential (primary) hypertension Plan to address problem: hypertension: Monitor blood pressure every shift, continue beta- danay therapy, add Apresoline, outpatient blood pressure log. Primary team may continue to titrate Apresoline therapy to achieve desired blood pressure.
--- NOTE | 2020-12-27 17:02 | Event Note ---
Date: 12/27/20 Urine culture showed Klebsiella. Cipro ordered. Discussed this with patient.
[2020-12-27] MEDS: levoFLOXacin 500 MG TAB PO SCH (17:35)
[2020-12-27] MEDS: hydrALAZINE 10 MG TAB PO SCH ×2 (17:36→22:11)
[2020-12-27] MEDS ORDERED: hydrALAZINE 20 MG/1 ML INJ IV PRN (20:09)
[2020-12-28] MEDS: IBUPROFEN 600 MG TAB PO SCH ×4 (04:56→21:00)
[2020-12-28] MEDS: hydrALAZINE 10 MG TAB PO SCH ×3 (06:08→22:05)
[2020-12-28] MEDS: ACETAMINOPHEN 325 MG TAB PO PRN (08:36)
[2020-12-28] MEDS: DOCUSATE SODIUM 100 MG CAP PO SCH ×2 (09:08→22:00)
[2020-12-28] MEDS: levoFLOXacin 500 MG TAB PO SCH (09:08)
[2020-12-28] MEDS: PRENATAL VIT27-FE FUMARATE-FOLIC ACID VIT TAB PO SCH (09:08)
--- NOTE | 2020-12-28 13:54 | Progress Note ---
Assessment and Plan - Patient Problems (1) Preeclampsia Onset Date: 10/16/18 Current Visit: No Status: Resolved Qualifiers: Trimester: third trimester Qualified Code(s): O14.93 - Unspecified pre- eclampsia, third trimester Plan to address problem: S/p mag, however with persistent BP elevations. Meeting goals. --Titrate 300mg BID to q8hr, additional 300mg now. Titrate BP meds until BPs <140/90 persistently --Apresoline prn severe range BPs --Continue inpatient management Subjective - Subjective Date of service: 12/28/20 Principal diagnosis: day 4 S/P ; preeclampsia Interval history: Patient doing well. Meeting goals. Reports hx mild CRUZ that resolved without intervention. Otherwise denies scotoma or RUQ pain. Otherwise well. Previously was going to be discharged yesterday, but stopped 2/2 persistently elevated BPs. Patient reports: appetite normal, voiding normally, dizzy ambulation, flatus, ambulating normally : doing well Objective - Vital Signs Latest vital signs: Vital Signs Temp Pulse Resp BP BP Pulse Ox 12/28/20 12:02 98.2 F 18 12/28/20 12:00 80 100 12/28/20 07:56 98.1 F 61 18 166/80 98 12/28/20 06:08 68 141/73 12/28/20 05:56 18 12/28/20 05:54 68 16 141/73 95 12/28/20 04:56 20 12/28/20 04:50 98.5 F 69 20 164/70 100 12/28/20 00:50 98.2 F 79 20 124/62 100 12/27/20 22:11 79 152/77 12/27/20 21:00 18 12/27/20 20:16 98.4 F 79 20 152/77 100 12/27/20 15:33 98.2 F 68 18 161/86 100 12/27/20 14:04 73 165/93 Intake and Output 12/27/20 12/28/20 12/28/20 23:59 07:59 15:59 Intake Total 1560 240 Balance 1560 240 Intake: Oral 360 240 Intake, Free Water 1200 Other: Total, Intake Amount 360 240 # Voids Void 4 2 - Exam Abdomen: Present: normal appearance, soft Uterus: Present: firm
--- NOTE | 2020-12-28 17:31 | Progress Note ---
Assessment and Plan (1) Hypertension with preeclampsia Current Visit: Yes Status: Acute Qualifiers: Hypertension type: unspecified Qualified Code(s): I10 - Essential (primary) hypertension Plan to address problem: hypertension: Monitor blood pressure every shift, continue beta- danay therapy -labetalol 300 every 8 hour, added Apresoline, outpatient blood pressure log. BP appears to be stable today Discharge planning per primary Subjective Date of service: 12/28/20 Principal diagnosis: day 4 S/P ; preeclampsia Interval history: Patient seen and examined. Medical records and medication list reviewed. No acute event overnight noted by the RN. Patient denies any chest pain or difficulty breathing. Patient is tolerating diet. Discussed plan of care at bedside with patient. Objective - Exam Narrative Exam: GENERAL: well-developed and well-nourished lying on bed appeared to be in no discomfort. HEENT: Normocephalic. Atraumatic. No conjunctival congestion or icterus. Patient has moist mucous membranes. NECK: Supple. Trachea midline. CHEST/LUNGS: Clear to auscultated bilaterally, breathing nonlabored. No wheezes crackles or rhonchi. HEART/CARDIOVASCULAR: Regular in rate and rhythm. S1 and S2 positive. ABDOMEN: Abdomen is soft, nontender. Patient has normal bowel sounds. SKIN: There is no rash. Warm and dry. NEURO: No focal motor deficit. Follows command. MUSCULOSKELETAL: No joint effusion or tenderness. EXTRIMITY: No edema, no cyanosis or clubbing. PSYCH: Cooperative. - Constitutional Vitals: Vital Signs - 12hr 12/28/20 12/28/20 12/28/20 05:54 05:56 06:08 Temperature Pulse Rate 68 68 Respiratory 16 18 Rate Blood Pressure 141/73 141/73 Blood Pressure [Left] O2 Sat by Pulse 95 Oximetry 12/28/20 12/28/20 12/28/20 07:56 12:00 12:02 Temperature 98.1 F 98.2 F Pulse Rate 61 80 Respiratory 18 18 Rate Blood Pressure 166/80 Blood Pressure 132/84 [Left] O2 Sat by Pulse 98 100 Oximetry 12/28/20 14:04 Temperature Pulse Rate 71 Respiratory Rate Blood Pressure 138/93 Blood Pressure [Left] O2 Sat by Pulse Oximetry - Labs CBC & Chem 7: 12/26/20 13:45 12/25/20 07:25
[2020-12-29] MEDS: IBUPROFEN 600 MG TAB PO SCH ×4 (04:32→22:01)
[2020-12-29] MEDS: hydrALAZINE 10 MG TAB PO SCH (06:42)
[2020-12-29] MEDS: levoFLOXacin 500 MG TAB PO SCH (12:54)
[2020-12-29] MEDS: PRENATAL VIT27-FE FUMARATE-FOLIC ACID VIT TAB PO SCH (13:02)
[2020-12-29] MEDS: DOCUSATE SODIUM 100 MG CAP PO SCH ×2 (13:03→21:59)
--- NOTE | 2020-12-29 13:15 | Progress Note ---
Assessment and Plan A: S/P Htn with preeclampsia UTI P: Continue routine pp care Continue abt and b/p monitoring with antihypertensives Ok to go home when cleared by IM re b/p elevations Subjective - Subjective Date of service: 12/29/20 Principal diagnosis: day 5 S/P ; preeclampsia Patient reports: appetite normal, voiding normally, pain well controlled, flatus, ambulating normally, other (Denies jean baptiste, visual disturbances, or epigastric pain) [place]: doing well, bottle feeding Objective - Vital Signs Latest vital signs: Vital Signs Temp Pulse Resp BP BP Pulse Ox 12/29/20 13:01 75 136/87 12/29/20 12:55 75 136/87 12/29/20 08:30 98.1 F 75 18 153/97 100 12/29/20 06:42 68 160/82 12/29/20 05:10 97.9 F 73 16 129/71 98 12/29/20 02:26 70 155/86 12/29/20 00:30 98.6 F 69 18 122/79 12/28/20 22:05 75 133/85 12/28/20 21:06 98.0 F 75 6 L 133/85 99 12/28/20 17:00 98.1 F 74 18 138/76 100 12/28/20 14:04 71 138/93 Intake and Output 12/28/20 12/29/20 12/29/20 22:59 06:59 14:59 Intake Total 300 Balance 300 Intake: Intake, Free Water 300 Other: # Voids Void 1 1 - Exam Breasts: Present: normal Abdomen: Present: normal appearance, soft, normal bowel sounds Vulva: both: normal Uterus: Present: normal, firm, fundal height below umbilicus Extremities: Present: normal
--- NOTE | 2020-12-29 13:35 | Progress Note ---
Assessment and Plan (1) Hypertension with preeclampsia Current Visit: Yes Status: Acute Qualifiers: Hypertension type: unspecified Qualified Code(s): I10 - Essential (primary) hypertension Plan to address problem: hypertension: Monitor blood pressure every shift, continue beta- danay therapy -labetalol 300 every 8 hour, hydralazine 25 mg every 8 hours. BP appears to be much stable today, further adjustment could be done as an outpatient Patient to keep blood pressure diary and to record BP in the morning and at bedtime Patient is medically stable for discharge Subjective Date of service: 12/29/20 Principal diagnosis: day 5 S/P ; preeclampsia Interval history: Patient seen and examined. Medical records and medication list reviewed. No acute event overnight noted by the RN. Patient denies any chest pain or difficulty breathing. Patient is tolerating diet. Discussed plan of care at bedside with patient. Objective - Exam Narrative Exam: GENERAL: well-developed and well-nourished AAF on bed appeared to be in no discomfort. HEENT: Normocephalic. Atraumatic. No conjunctival congestion or icterus. Patient has moist mucous membranes. NECK: Supple. Trachea midline. CHEST/LUNGS: Clear to auscultated bilaterally, breathing nonlabored. No wheezes crackles or rhonchi. HEART/CARDIOVASCULAR: Regular in rate and rhythm. S1 and S2 positive. ABDOMEN: Abdomen is soft, nontender. Patient has normal bowel sounds. SKIN: There is no rash. Warm and dry. NEURO: No focal motor deficit. Follows command. MUSCULOSKELETAL: No joint effusion or tenderness. EXTRIMITY: No edema, no cyanosis or clubbing. PSYCH: Cooperative. - Constitutional Vitals: Vital Signs - 12hr 12/29/20 12/29/20 12/29/20 02:26 05:10 06:42 Temperature 97.9 F Pulse Rate 70 73 68 Respiratory 16 Rate Blood Pressure 155/86 129/71 160/82 Blood Pressure [Right] O2 Sat by Pulse 98 Oximetry 12/29/20 12/29/20 12/29/20 08:30 12:55 13:01 Temperature 98.1 F Pulse Rate 75 75 75 Respiratory 18 Rate Blood Pressure 136/87 136/87 Blood Pressure 153/97 [Right] O2 Sat by Pulse 100 Oximetry - Labs CBC & Chem 7: 12/26/20 13:45 12/25/20 07:25
[2020-12-29] MEDS ORDERED: hydrALAZINE 10 MG TAB PO SCH (14:00)
[2020-12-29] MEDS: hydrALAZINE 25 MG TAB PO SCH ×2 (17:53→21:59)
[2020-12-30] MEDS: IBUPROFEN 600 MG TAB PO SCH (03:10)
[2020-12-30] MEDS: hydrALAZINE 25 MG TAB PO SCH (06:15)
[2020-12-30] MEDS: levoFLOXacin 500 MG TAB PO SCH (09:34)
--- NOTE | 2020-12-30 13:30 | Event Note ---
Date: 12/30/20 Vitals noticed and appears to be stable Continue current antihypertensive and further adjustment of BP medications as outpatient Patient appears to be medically stable for discharge We will sign off please call us back with any question or concern
--- NOTE | 2020-12-30 15:56 | Progress Note ---
Assessment and Plan - Patient Problems (1) Anemia Current Visit: Yes Status: Acute Qualifiers: Anemia type: other cause Other causes of anemia: acute posthemorrhagic Qualified Code(s): D62 - Acute posthemorrhagic anemia Plan to address problem: blood loss anemia. Will send pt home with iron. (2) Hypertension Current Visit: Yes Status: Acute Qualifiers: Hypertension type: unspecified Qualified Code(s): I10 - Essential (primary) hypertension Plan to address problem: Stable. Will send home with Labetalol 300mg TID and hydralazine 25mg po TID. Medicine signed off on pt. RTO 1 week to check BP. (3) (normal spontaneous vaginal delivery) Onset Date: 10/18/18 Current Visit: No Status: Resolved Subjective - Subjective Date of service: 12/30/20 Principal diagnosis: day 6 S/P ; preeclampsia Interval history: PT doing well with improved BP control. No preeclamptic sxs. No other complaints. No anemic sxs. Objective - Vital Signs Latest vital signs: Vital Signs Temp Pulse Resp BP BP Pulse Ox 12/30/20 09:38 83 142/73 12/30/20 09:35 83 142/73 12/30/20 08:38 97.6 F 77 18 139/80 100 12/30/20 06:15 68 140/87 12/30/20 02:51 79 135/85 12/30/20 02:48 79 136/85 12/30/20 02:45 79 136/85 12/30/20 00:00 98.6 F 74 16 112/78 12/29/20 21:59 72 168/97 12/29/20 17:53 78 134/83 12/29/20 16:20 98.1 F 73 18 147/95 100
--- NOTE | 2020-12-30 16:02 | Discharge Summary ---
Providers - Providers Date of Admission: 12/23/20 15:03 Attending physician: CLAUDIA SPENCE 12/27/20 14:50 Consult to Physician [CONS] Routine Comment: Consulting Provider: CECILIA MCCORMACK Physician Instructions: Reason For Exam: uncontrolled hypertension Primary care physician: CLAUDIA SPENCE Hospitalization Reason for admission: induction of labor, other (severe preeclampsia) Delivery: Procedure details: see Delivery note. Delivery was uncomplicated. Episiotomy: none Laceration: none Hospital course: PT induced at 34 weeks for severe preeclampsia. See Progress notes for details. PT required additional HTN meds PP and took almost a week to control her BP adequately. Pt achieved adequate control with Labetalol 300mg TID and Hydralazine 25 mg TID and she was sent home with that regimen. RTO 1 week for BP check. PT also sent home with iron for mild blood loss anemia. Condition at discharge: Good Disposition: DC-01 TO HOME OR SELFCARE - Discharge Diagnoses (1) Anemia Status: Acute Qualifiers: Anemia type: other cause Other causes of anemia: acute posthemorrhagic Qualified Code(s): D62 - Acute posthemorrhagic anemia (2) Hypertension Status: Acute Qualifiers: Hypertension type: unspecified Qualified Code(s): I10 - Essential (primary) hypertension Plan - Discharge Medications Prescriptions: hydrALAZINE [Apresoline TAB] 25 mg PO Q8HR #90 tablet Ferrous Sulfate [Feosol 325 MG tab] 325 mg PO BID #90 tablet labetaloL [Labetalol 100mg TAB] 100 mg PO Q8H #90 tablet labetaloL [Labetalol 200mg TAB] 200 mg PO Q8H #90 tablet Ibuprofen [Motrin 600 MG tab] 600 mg PO Q6H PRN #30 tablet PRN Reason: Pain , Severe (7-10) - Provider Discharge Summary Additional instructions: [] Smoking cessation referral if applicable(refer to patient education folder for contact #) [] Refer to [facility]'s [facility] Booklet Call your doctor immediately for: * Fever > 100.5 * Heavy vaginal bleeding ( >1 pad per hour) * Severe persistent headache * Shortness of breath * Reddened, hot, painful area to leg or breast * Drainage or odor from incision. * Keep incision clean and dry at all times and follow doctor's instructions regarding bathing/showering - Follow up plan Follow up: CLAUDIA SPENCE MD [Primary Care Provider] - 7 Days Forms: [facility] Discharge Summary
[2020-12-30 19:05] VITALS: BP 132/83
== END 2020-12-30 19:50 | disposition home or self-care (01) | DRG 775 ==
LOC: APU 13:31 → TRG 13:31 → APU 13:32 → LD 15:03 → TRG 15:03 → OBSVTOIN 15:03 → OB 12-25 04:34
PROVIDERS: ADMIT Obstetrics & Gynecology; ATTEND Obstetrics & Gynecology
PROC: 3E033VJ Introduction of Other Hormone into Peripheral Vein, Percutaneous Approach (ICD-10-PCS; 2020-12-23)
PROC: 3E0R3BZ Introduction of Anesthetic Agent into Spinal Canal, Percutaneous Approach (ICD-10-PCS; 2020-12-23)
PROC: 00HU33Z Insertion of Infusion Device into Spinal Canal, Percutaneous Approach (ICD-10-PCS; 2020-12-23)
PROC: 30233N1 Transfusion of Nonautologous Red Blood Cells into Peripheral Vein, Percutaneous Approach (ICD-10-PCS; 2020-12-23)
PROC: 10E0XZZ Delivery of Products of Conception, External Approach (ICD-10-PCS; principal; 2020-12-24)
DX: O16.4 Unspecified maternal hypertension, complicating childbirth (principal); O14.14 Severe pre-eclampsia complicating childbirth; Z3A.34 34 weeks gestation of pregnancy; Z37.0 Single live birth; D62 Acute posthemorrhagic anemia; Z20.822 Contact with and (suspected) exposure to COVID-19
CPT/HCPCS: 36415; 76815; 76857; 80053; 81001; 82565; 82570; 83615; 83735; 84156; 84450; 84460; 84550; 85007; 85025; 85027; 85610; 85730; 86850; 86900; 86901; 86920; 87076; 87086; 87186; 93005; G0378; J0360; J0702; J3475; J7040; J7120; P9016; U0003